=== PATIENT | male | born 1980 | race Hispanic/Latino ===

== ENCOUNTER 2017-09-04 11:51 | Inpatient (IN) | payer MEDICAID ==
[~2017-09-04] VITALS: Ht 144.8 cm; Wt 45.3 kg
[~2017-09-04 11:51] MED LIST: ACET-1952 PO; AMLO2.5T PO; CITA-107 PO; COLE625 PO; CYCL25CA3 PO; DOCU100C19 PO; DOCU240C25 PO; ESOM40CA PO; FLUC200T8 PO; FLUT16H EN; INSU100I15 SQ; LINA5TAB PO; LORA10TA7 PO; METO25TA3 PO; MYCO500T PO; OLOP2.5D OU; ONDA4TAB10 PO; OXYGEN NASAL; PRED2.5T PO; PROCTOCM PR; VALS80TA2 PO
[2017-09-04 12:58] LABS: BASOPHILS % (AUTO) 0.3 % (0.0-5.0); EOSINOPHILS % (AUTO) 0.3 % (0.0-8.0); HEMATOCRIT 41.7 % (42-54); LYMPHOCYTES % (AUTO) 8.9 % (21.0-51.0); MEAN CORPUSCULAR HEMOGLOBIN 29.4 pg (27.0-33.0); MEAN CORPUSCULAR HGB CONC 32.5 g/dL (32.0-36.0); MEAN CORPUSCULAR VOLUME 90.6 fL (79-99); MONOCYTES % (AUTO) 7.7 % (3.0-13.0); NEUTROPHILS % (AUTO) 82.8 % (40.0-77.0); NUCLEATED RED BLOOD CELLS 0.5 % (0.0-0.19); PLATELET COUNT (AUTO) 349 K/uL (130-400); RED BLOOD CELL COUNT(AUTO) 4.61 MIL/uL (4.50-6.20); WHITE BLOOD COUNT (AUTO) 15.1 K/uL (4.8-10.8)
[2017-09-04 13:17] LABS: CREATININE 3.1 mg/dL (0.5-1.5); POTASSIUM 4.2 mmol/L (3.5-5.1)
[2017-09-04 13:24] LABS: BILIRUBIN,TOTAL 0.2 mg/dL (0.2-1.0)
[2017-09-04 13:25] LABS: ALBUMIN 3.2 g/dL (3.5-5.0); TOTAL PROTEIN, SERUM 7.7 g/dL (6.0-8.3)
[2017-09-04] MEDS ORDERED: LEVOFLOXACIN 500 MG/D5W 100 ML 100 ML ONE (13:44)
[2017-09-04 15:16] VITALS: BP 126/91
[2017-09-04] MEDS ORDERED: FISH1CAP50 PO (17:17)
[2017-09-04] MEDS ORDERED: MULT-413 PO (17:17)
[2017-09-04 17:40] VITALS: BP 129/83
[2017-09-04] MEDS ORDERED: SODIUM CHLORIDE 0.9% 10 ML VIAL IVP SCH (18:15)
[2017-09-04] MEDS ORDERED: DiphenhydrAMINE HCL 50 MG/ML VIAL IVP PRN (18:15)
[2017-09-04] MEDS ORDERED: GUAIFENESIN-DM 200/20 MG 10 ML PO PRN (18:15)
[2017-09-04] MEDS ORDERED: ONDANSETRON HCL 4 MG/2 ML VIAL IVP PRN (18:15)
[2017-09-04] MEDS ORDERED: NITROGLYCERIN 0.4 MG SL TAB SL PRN (18:15)
[2017-09-04] MEDS ORDERED: DIPHENHYDRAMINE HCL 25 MG CAPSULE PO PRN (18:15)
[2017-09-04] MEDS ORDERED: ZOLPIDEM TARTRATE 5 MG TAB PO PRN (18:15)
[2017-09-04] MEDS ORDERED: LACTULOSE 20 GM/30 ML UDCUP PO PRN (18:15)
[2017-09-04] MEDS ORDERED: GUAIFENESIN SUGAR-FREE 100 MG/5 ML UDCUP PO PRN (18:15)
[2017-09-04] MEDS ORDERED: MAG HYDROX/AL HYDROX/SIMETH ES 30 ML SUSP UDCUP PO PRN (18:15)
[2017-09-04] MEDS ORDERED: CLONIDINE HCL 0.1 MG TABLET PO PRN (18:15)
[2017-09-04] MEDS ORDERED: ACETAMINOPHEN 325 MG TAB PO PRN ×2 (18:15)
[2017-09-04 19:03] VITALS: BP 122/81
[2017-09-04 19:53] LABS: APPEARANCE,URINE Clear (CLEAR); BILIRUBIN,URINE Negative (NEGATIVE); COLOR,URINE Yellow (YELLOW); GLUCOSE, URINE (UA) Negative (NEGATIVE); KETONES,URINE Negative (NEGATIVE); LEUKOCYTE ESTERASE ,URINE Negative (NEGATIVE); NITRATE,URINE Negative (NEGATIVE); OCCULT BLOOD,URINE Trace (NEGATIVE); PROTEIN,URINE 300 (NEGATIVE); UROBILINOGEN,URINE 0.2 mg/dL (0.2-1.0)
[2017-09-04 20:00] LABS: BACTERIA,URINE None Seen /HPF (None Seen); RBC,URINE 0-1 /HPF (0-1); SQUAMOUS EPITHELIAL CELL,UR 0-2 /HPF (0-2); WBC,URINE 0-1 /HPF (0-1)
[2017-09-04] MEDS: FAMOTIDINE 20MG TAB 20 MG TAB PO SCH (21:05)
[2017-09-04] MEDS: FUROSEMIDE 10 MG/ML 4ML VIAL IVP SCH (21:05)
[2017-09-04 23:35] VITALS: BP 125/82
[2017-09-05 03:49] VITALS: BP 125/85
[2017-09-05 03:57] LABS: BASOPHILS % (AUTO) 0.8 % (0.0-5.0); EOSINOPHILS % (AUTO) 0.7 % (0.0-8.0); HEMATOCRIT 37.2 % (42-54); LYMPHOCYTES % (AUTO) 11.1 % (21.0-51.0); MEAN CORPUSCULAR HEMOGLOBIN 28.6 pg (27.0-33.0); MEAN CORPUSCULAR HGB CONC 32.1 g/dL (32.0-36.0); MEAN CORPUSCULAR VOLUME 89.1 fL (79-99); MONOCYTES % (AUTO) 9.1 % (3.0-13.0); NEUTROPHILS % (AUTO) 78.3 % (40.0-77.0); NUCLEATED RED BLOOD CELLS 0.3 % (0.0-0.19); PLATELET COUNT (AUTO) 285 K/uL (130-400); RED BLOOD CELL COUNT(AUTO) 4.17 MIL/uL (4.50-6.20); RED CELL DISTRIBUTION WIDTH 16.7 % (11.0-15.5); WHITE BLOOD COUNT (AUTO) 12.5 K/uL (4.8-10.8)
[2017-09-05 04:13] LABS: CREATININE 3.1 mg/dL (0.5-1.5); POTASSIUM 3.9 mmol/L (3.5-5.1)
[2017-09-05 07:27] VITALS: BP 127/84
[2017-09-05] MEDS: PANTOPRAZOLE SODIUM 40 MG TABLET.DR PO SCH (08:08)
[2017-09-05] MEDS: FAMOTIDINE 20MG TAB 20 MG TAB PO SCH ×2 (08:08→20:38)
[2017-09-05] MEDS: FUROSEMIDE 10 MG/ML 4ML VIAL IVP SCH ×2 (08:08→20:38)
[2017-09-05 11:16] VITALS: BP 129/82
[2017-09-05] MEDS ORDERED: LORATADINE 10 MG TABLET PO PRN (12:30)
[2017-09-05] MEDS ORDERED: ONDANSETRON ODT 4 MG TAB PO PRN (12:30)
[2017-09-05] MEDS: ALBUTEROL SULFATE 0.083% 2.5 MG/3 ML INH IH SCH ×3 (13:48→21:33)
[2017-09-05] MEDS: COLESEVELAM HCL 625 MG TAB PO SCH ×2 (14:00→20:39)
[2017-09-05 16:21] VITALS: BP_SYST 109; BP_SYST 130; BP_DIAS 62; BP_DIAS 84
[2017-09-05] MEDS: INSULIN LISPRO 100 UNIT/ML 3ML SQ PRN ×2 (17:23→20:51)
[2017-09-05 19:02] VITALS: BP 131/87
[2017-09-05] MEDS: SODIUM BICARBONATE 650 MG TAB PO SCH (20:39)
[2017-09-05] MEDS: FLUCONAZOLE 100 MG TAB PO SCH (20:39)
[2017-09-05] MEDS: METOPROLOL TARTRATE 25 MG TAB PO SCH (20:40)
[2017-09-05] MEDS: LOSARTAN 50 MG TABLET PO SCH (20:40)
[2017-09-05 23:07] VITALS: BP 126/84
[2017-09-06] MEDS: ALBUTEROL SULFATE 0.083% 2.5 MG/3 ML INH IH SCH ×6 (02:02→22:03)
[2017-09-06 03:34] VITALS: BP 129/82
[2017-09-06 04:39] LABS: BASOPHILS % (AUTO) 0.6 % (0.0-5.0); EOSINOPHILS % (AUTO) 0.6 % (0.0-8.0); HEMATOCRIT 36.5 % (42-54); LYMPHOCYTES % (AUTO) 14.6 % (21.0-51.0); MEAN CORPUSCULAR HEMOGLOBIN 33.4 pg (27.0-33.0); MEAN CORPUSCULAR HGB CONC 37.5 g/dL (32.0-36.0); MEAN CORPUSCULAR VOLUME 88.9 fL (79-99); MONOCYTES % (AUTO) 8.3 % (3.0-13.0); NEUTROPHILS % (AUTO) 75.9 % (40.0-77.0); NUCLEATED RED BLOOD CELLS 0.2 % (0.0-0.19); PLATELET COUNT (AUTO) 324 K/uL (130-400); RED CELL DISTRIBUTION WIDTH 16.9 % (11.0-15.5); WHITE BLOOD COUNT (AUTO) 13.2 K/uL (4.8-10.8)
[2017-09-06 04:57] LABS: ALBUMIN 2.5 g/dL (3.5-5.0); BILIRUBIN,TOTAL 0.7 mg/dL (0.2-1.0); POTASSIUM 4.3 mmol/L (3.5-5.1)
[2017-09-06 05:51] LABS: TOTAL PROTEIN, SERUM 7.1 g/dL (6.0-8.3); URIC ACID 8.6 mg/dL (2.6-7.2)
[2017-09-06] MEDS: PANTOPRAZOLE SODIUM 40 MG TABLET.DR PO SCH ×2 (06:59→08:13)
[2017-09-06 07:00] VITALS: BP 134/85
[2017-09-06] MEDS: FUROSEMIDE 10 MG/ML 4ML VIAL IVP SCH (08:11)
[2017-09-06] MEDS: METOPROLOL TARTRATE 25 MG TAB PO SCH ×2 (08:12→21:07)
[2017-09-06] MEDS: DOCUSATE SODIUM 100 MG CAP PO SCH (08:13)
[2017-09-06] MEDS: FISH OIL 1000 MG/CAP PO SCH (08:13)
[2017-09-06] MEDS: CITALOPRAM 20 MG TABLET PO SCH (08:13)
[2017-09-06] MEDS: FAMOTIDINE 20MG TAB 20 MG TAB PO SCH ×2 (08:13→21:07)
[2017-09-06] MEDS: COLESEVELAM HCL 625 MG TAB PO SCH ×3 (08:13→21:07)
[2017-09-06] MEDS: FE FUMARATE/FA/MV, MIN COMB#15 1 TAB PO SCH (08:13)
[2017-09-06] MEDS: MYCOPHENOLATE MOFETIL 250 MG CAPSULE PO SCH (08:13)
[2017-09-06] MEDS: SODIUM BICARBONATE 650 MG TAB PO SCH ×3 (08:13→21:07)
[2017-09-06] MEDS: LINAGLIPTIN 5 MG TABLET PO SCH (08:14)
[2017-09-06] MEDS: FLUTICASONE PROPIONATE 50MCG/SPRAY 16 GM BOTTLE EN SCH (08:14)
[2017-09-06] MEDS: PREDNISONE 5 MG TABLET PO SCH (09:00)
[2017-09-06 11:00] VITALS: BP 129/89
[2017-09-06 16:00] VITALS: BP 146/96
[2017-09-06] MEDS: INSULIN LISPRO 100 UNIT/ML 3ML SQ PRN (16:33)
[2017-09-06 19:21] VITALS: BP 125/92
[2017-09-06] MEDS ORDERED: MEROPENEM 500MG+NS 50ML 50 ML IV SCH (21:00)
[2017-09-06] MEDS: LOSARTAN 50 MG TABLET PO SCH (21:05)
[2017-09-06] MEDS: FLUCONAZOLE 100 MG TAB PO SCH (21:06)
[2017-09-06] MEDS: MEROPENEM 500 MG VIAL IVP SCH (21:07)
[2017-09-06 23:23] VITALS: BP 129/85
[2017-09-07] MEDS: ALBUTEROL SULFATE 0.083% 2.5 MG/3 ML INH IH SCH ×6 (01:16→21:35)
[2017-09-07 03:06] VITALS: BP 138/87
[2017-09-07 04:54] LABS: CREATININE 3.7 mg/dL (0.5-1.5); POTASSIUM 3.4 mmol/L (3.5-5.1)
[2017-09-07 04:56] LABS: HEMATOCRIT 37.7 % (42-54); MEAN CORPUSCULAR HEMOGLOBIN 30.1 pg (27.0-33.0); MEAN CORPUSCULAR HGB CONC 33.5 g/dL (32.0-36.0); MEAN CORPUSCULAR VOLUME 89.9 fL (79-99); NUCLEATED RED BLOOD CELLS 0.2 % (0.0-0.19); PLATELET COUNT (AUTO) 197 K/uL (130-400); RED BLOOD CELL COUNT(AUTO) 4.19 MIL/uL (4.50-6.20); WHITE BLOOD COUNT (AUTO) 12.4 K/uL (4.8-10.8)
[2017-09-07 07:11] VITALS: BP 136/92
[2017-09-07] MEDS: PREDNISONE 5 MG TABLET PO SCH (08:42)
[2017-09-07] MEDS: FOLIC ACID/VITAMIN B COMP W-C 1 MG CAPSULE PO SCH (08:42)
[2017-09-07] MEDS: FISH OIL 1000 MG/CAP PO SCH (08:42)
[2017-09-07] MEDS: DOCUSATE SODIUM 100 MG CAP PO SCH (08:42)
[2017-09-07] MEDS: COLESEVELAM HCL 625 MG TAB PO SCH ×3 (08:42→22:02)
[2017-09-07] MEDS: LINAGLIPTIN 5 MG TABLET PO SCH (08:42)
[2017-09-07] MEDS: MEROPENEM 500 MG VIAL IVP SCH ×2 (08:42→22:02)
[2017-09-07] MEDS: FAMOTIDINE 20MG TAB 20 MG TAB PO SCH ×2 (08:42→22:02)
[2017-09-07] MEDS: SODIUM BICARBONATE 650 MG TAB PO SCH ×3 (08:43→22:02)
[2017-09-07] MEDS: PANTOPRAZOLE SODIUM 40 MG TABLET.DR PO SCH ×2 (08:43)
[2017-09-07] MEDS: CITALOPRAM 20 MG TABLET PO SCH (08:43)
[2017-09-07] MEDS: FE FUMARATE/FA/MV, MIN COMB#15 1 TAB PO SCH (08:43)
[2017-09-07] MEDS: METOPROLOL TARTRATE 25 MG TAB PO SCH ×2 (08:43→22:02)
[2017-09-07] MEDS: MYCOPHENOLATE MOFETIL 250 MG CAPSULE PO SCH (08:51)
[2017-09-07] MEDS: CYCLOSPORINE, MODIFIED 25 MG CAPSULE PO SCH ×2 (08:52→09:00)
[2017-09-07] MEDS: FLUTICASONE PROPIONATE 50MCG/SPRAY 16 GM BOTTLE EN SCH (09:00)
[2017-09-07 11:00] VITALS: BP 144/91
[2017-09-07 12:46] LABS: COLLECTION PERIOD,URINE 24 HR; TOTAL VOLUME 24HRS,URINE 600 mL
[2017-09-07 12:51] LABS: CREATININE,SERUM FOR CRCL 3.7 mg/dL (0.6-1.3)
[2017-09-07 13:01] LABS: TPROTEIN TIMED,URINE 290 mg/dL; TPROTEIN U,24HR CALC 1740 mg/24HR (0-165)
[2017-09-07 16:00] VITALS: BP 143/96
[2017-09-07] MEDS: INSULIN LISPRO 100 UNIT/ML 3ML SQ PRN (16:19)
[2017-09-07 19:36] VITALS: BP 148/92
[2017-09-07] MEDS: FLUCONAZOLE 100 MG TAB PO SCH (22:01)
[2017-09-07] MEDS: LOSARTAN 50 MG TABLET PO SCH (22:02)
[2017-09-07 23:30] VITALS: BP 145/93
[2017-09-08] MEDS: ALBUTEROL SULFATE 0.083% 2.5 MG/3 ML INH IH SCH ×6 (01:50→22:27)
[2017-09-08 04:02] LABS: HEMATOCRIT 36.6 % (42-54); MEAN CORPUSCULAR HEMOGLOBIN 29.6 pg (27.0-33.0); MEAN CORPUSCULAR VOLUME 89.6 fL (79-99); NUCLEATED RED BLOOD CELLS 0.2 % (0.0-0.19); PLATELET COUNT (AUTO) 284 K/uL (130-400); RED BLOOD CELL COUNT(AUTO) 4.08 MIL/uL (4.50-6.20); RED CELL DISTRIBUTION WIDTH 17.1 % (11.0-15.5); WHITE BLOOD COUNT (AUTO) 10.4 K/uL (4.8-10.8)
[2017-09-08 04:10] VITALS: BP 143/93
[2017-09-08 04:19] LABS: ALBUMIN 2.8 g/dL (3.5-5.0); BILIRUBIN,TOTAL 0.2 mg/dL (0.2-1.0); CREATININE 3.3 mg/dL (0.5-1.5); POTASSIUM 4.1 mmol/L (3.5-5.1); TOTAL PROTEIN, SERUM 6.7 g/dL (6.0-8.3)
[2017-09-08 04:20] LABS: BAND NEUTROPHILS % (MANUAL) 1 % (0-2); BASOPHILS % (MANUAL) 1 % (0-2); EOSINOPHILS % (MANUAL) 2 % (1-6); LYMPHOCYTES % (MANUAL) 13 % (22-44); MONOCYTES % (MANUAL) 5 % (2-9); SEGMENTED NEUTROPHILS % 78 % (40-70)
[2017-09-08 04:21] LABS: MAN.DIFF COMMENT-IMPRESSION MANUAL DIFFERENTIAL
[2017-09-08 07:00] VITALS: BP 138/96
[2017-09-08] MEDS: LINAGLIPTIN 5 MG TABLET PO SCH (08:18)
[2017-09-08] MEDS: COLESEVELAM HCL 625 MG TAB PO SCH ×3 (08:18→22:39)
[2017-09-08] MEDS: SODIUM BICARBONATE 650 MG TAB PO SCH ×3 (08:18→22:54)
[2017-09-08] MEDS: CITALOPRAM 20 MG TABLET PO SCH (08:18)
[2017-09-08] MEDS: FAMOTIDINE 20MG TAB 20 MG TAB PO SCH ×2 (08:19→22:40)
[2017-09-08] MEDS: FE FUMARATE/FA/MV, MIN COMB#15 1 TAB PO SCH (08:19)
[2017-09-08] MEDS: PREDNISONE 5 MG TABLET PO SCH (08:19)
[2017-09-08] MEDS: FISH OIL 1000 MG/CAP PO SCH (08:19)
[2017-09-08] MEDS: METOPROLOL TARTRATE 25 MG TAB PO SCH ×2 (08:19→22:39)
[2017-09-08] MEDS: DOCUSATE SODIUM 100 MG CAP PO SCH (08:19)
[2017-09-08] MEDS: PANTOPRAZOLE SODIUM 40 MG TABLET.DR PO SCH ×2 (08:19)
[2017-09-08] MEDS: FOLIC ACID/VITAMIN B COMP W-C 1 MG CAPSULE PO SCH (08:19)
[2017-09-08] MEDS: MYCOPHENOLATE MOFETIL 250 MG CAPSULE PO SCH (08:25)
[2017-09-08] MEDS: FLUTICASONE PROPIONATE 50MCG/SPRAY 16 GM BOTTLE EN SCH (08:28)
[2017-09-08] MEDS: MEROPENEM 500 MG VIAL IVP SCH (09:00)
[2017-09-08 11:00] VITALS: BP 132/99
[2017-09-08 16:00] VITALS: BP 132/93
[2017-09-08 19:32] VITALS: BP 135/92
[2017-09-08] MEDS ORDERED: MEROPENEM 500 MG VIAL IVP SCH (21:00)
[2017-09-08] MEDS: FLUCONAZOLE 100 MG TAB PO SCH (22:40)
[2017-09-08] MEDS: LOSARTAN 50 MG TABLET PO SCH (22:40)
[2017-09-09] VITALS (7 sets, daily range): BP systolic 124–152; BP diastolic 63–101
[2017-09-09] MEDS: ALBUTEROL SULFATE 0.083% 2.5 MG/3 ML INH IH SCH ×6 (02:09→22:16)
[2017-09-09 05:07] LABS: MEAN CORPUSCULAR HEMOGLOBIN 32.1 pg (27.0-33.0); MEAN CORPUSCULAR HGB CONC 35.9 g/dL (32.0-36.0); MEAN CORPUSCULAR VOLUME 89.5 fL (79-99); NUCLEATED RED BLOOD CELLS 0.1 % (0.0-0.19); PLATELET COUNT (AUTO) 300 K/uL (130-400); RED BLOOD CELL COUNT(AUTO) 4.02 MIL/uL (4.50-6.20); WHITE BLOOD COUNT (AUTO) 10.6 K/uL (4.8-10.8)
[2017-09-09 05:15] LABS: LYMPHOCYTES % (MANUAL) 15 % (22-44); MAN.DIFF COMMENT-IMPRESSION MANUAL DIFFERENTIAL; MONOCYTES % (MANUAL) 3 % (2-9); PLATELET MORPHOLOGY COMMENT ADEQUATE; SEGMENTED NEUTROPHILS % 82 % (40-70)
[2017-09-09 05:37] LABS: POTASSIUM 4.1 mmol/L (3.5-5.1)
[2017-09-09 06:00] LABS: CREATININE 2.6 mg/dL (0.5-1.5)
[2017-09-09] MEDS: PANTOPRAZOLE SODIUM 40 MG TABLET.DR PO SCH ×2 (07:33→08:07)
[2017-09-09] MEDS: FISH OIL 1000 MG/CAP PO SCH (08:07)
[2017-09-09] MEDS: LINAGLIPTIN 5 MG TABLET PO SCH (08:07)
[2017-09-09] MEDS: SODIUM BICARBONATE 650 MG TAB PO SCH ×3 (08:07→21:01)
[2017-09-09] MEDS: FE FUMARATE/FA/MV, MIN COMB#15 1 TAB PO SCH (08:07)
[2017-09-09] MEDS: METOPROLOL TARTRATE 25 MG TAB PO SCH ×2 (08:07→20:59)
[2017-09-09] MEDS: FOLIC ACID/VITAMIN B COMP W-C 1 MG CAPSULE PO SCH (08:07)
[2017-09-09] MEDS: DOCUSATE SODIUM 100 MG CAP PO SCH (08:07)
[2017-09-09] MEDS: PREDNISONE 5 MG TABLET PO SCH (08:07)
[2017-09-09] MEDS: CYCLOSPORINE, MODIFIED 25 MG CAPSULE PO SCH (08:08)
[2017-09-09] MEDS: MYCOPHENOLATE MOFETIL 250 MG CAPSULE PO SCH (08:08)
[2017-09-09] MEDS: CITALOPRAM 20 MG TABLET PO SCH (08:08)
[2017-09-09] MEDS: FAMOTIDINE 20MG TAB 20 MG TAB PO SCH ×2 (08:08→21:00)
[2017-09-09] MEDS: COLESEVELAM HCL 625 MG TAB PO SCH ×3 (08:08→20:58)
[2017-09-09] MEDS: FLUTICASONE PROPIONATE 50MCG/SPRAY 16 GM BOTTLE EN SCH (08:08)
[2017-09-09] MEDS: INSULIN LISPRO 100 UNIT/ML 3ML SQ PRN (17:02)
[2017-09-09] MEDS: MEROPENEM 1 GM VIAL IVP SCH (20:58)
[2017-09-09] MEDS: LOSARTAN 50 MG TABLET PO SCH (20:59)
[2017-09-09] MEDS: FLUCONAZOLE 100 MG TAB PO SCH (20:59)
[2017-09-10] MEDS: ALBUTEROL SULFATE 0.083% 2.5 MG/3 ML INH IH SCH ×4 (02:15→14:13)
[2017-09-10 03:40] VITALS: BP 143/94
[2017-09-10 04:46] LABS: HEMATOCRIT 33.8 % (42-54); MEAN CORPUSCULAR HEMOGLOBIN 31.5 pg (27.0-33.0); MEAN CORPUSCULAR HGB CONC 35.3 g/dL (32.0-36.0); MEAN CORPUSCULAR VOLUME 89.1 fL (79-99); NUCLEATED RED BLOOD CELLS 0.1 % (0.0-0.19); PLATELET COUNT (AUTO) 266 K/uL (130-400); RED CELL DISTRIBUTION WIDTH 16.9 % (11.0-15.5); WHITE BLOOD COUNT (AUTO) 10.4 K/uL (4.8-10.8)
[2017-09-10 04:49] LABS: CREATININE 2.7 mg/dL (0.5-1.5); POTASSIUM 3.6 mmol/L (3.5-5.1)
[2017-09-10 07:30] VITALS: BP 142/97
[2017-09-10] MEDS: COLESEVELAM HCL 625 MG TAB PO SCH ×2 (08:08→15:50)
[2017-09-10] MEDS: MYCOPHENOLATE MOFETIL 250 MG CAPSULE PO SCH (08:08)
[2017-09-10] MEDS: METOPROLOL TARTRATE 25 MG TAB PO SCH (08:08)
[2017-09-10] MEDS: FLUTICASONE PROPIONATE 50MCG/SPRAY 16 GM BOTTLE EN SCH (08:09)
[2017-09-10] MEDS: FOLIC ACID/VITAMIN B COMP W-C 1 MG CAPSULE PO SCH (08:09)
[2017-09-10] MEDS: SODIUM BICARBONATE 650 MG TAB PO SCH ×2 (08:09→15:50)
[2017-09-10] MEDS: FISH OIL 1000 MG/CAP PO SCH (08:09)
[2017-09-10] MEDS: PREDNISONE 5 MG TABLET PO SCH (08:09)
[2017-09-10] MEDS: FE FUMARATE/FA/MV, MIN COMB#15 1 TAB PO SCH (08:09)
[2017-09-10] MEDS: LINAGLIPTIN 5 MG TABLET PO SCH (08:09)
[2017-09-10] MEDS: CITALOPRAM 20 MG TABLET PO SCH (08:09)
[2017-09-10] MEDS: FAMOTIDINE 20MG TAB 20 MG TAB PO SCH (08:09)
[2017-09-10] MEDS: DOCUSATE SODIUM 100 MG CAP PO SCH (08:09)
[2017-09-10] MEDS: PANTOPRAZOLE SODIUM 40 MG TABLET.DR PO SCH (08:09)
[2017-09-10 11:50] VITALS: BP 144/96
[2017-09-10] MEDS: INSULIN LISPRO 100 UNIT/ML 3ML SQ PRN (12:24)
[2017-09-10] MEDS: MEROPENEM 1 GM VIAL IVP SCH (13:33)
[2017-09-11] MEDS ORDERED: FAMOTIDINE 20MG TAB 20 MG TAB PO SCH (09:00)
== END 2017-09-10 16:27 | disposition home or self-care (01) | DRG 720 ==
LOC: EDH 11:51 → EDHIP 11:52 → 2DH 17:40
PROVIDERS: ADMIT Family Medicine; ATTEND Family Medicine
DX: A41.9 Sepsis, unspecified organism (principal); J96.22 Acute and chronic respiratory failure with hypercapnia; Q21.3 Tetralogy of Fallot; I12.0 Hypertensive chronic kidney disease with stage 5 chronic kidney disease or end stage renal disease; N17.9 Acute kidney failure, unspecified; E11.22 Type 2 diabetes mellitus with diabetic chronic kidney disease; I42.9 Cardiomyopathy, unspecified; E66.2 Morbid (severe) obesity with alveolar hypoventilation; E87.2 Acidosis; N18.6 End stage renal disease; D64.9 Anemia, unspecified; E78.5 Hyperlipidemia, unspecified; F79 Unspecified intellectual disabilities; J20.9 Acute bronchitis, unspecified; J44.0 Chronic obstructive pulmonary disease with (acute) lower respiratory infection; J44.1 Chronic obstructive pulmonary disease with (acute) exacerbation; N39.0 Urinary tract infection, site not specified; Z16.12 Extended spectrum beta lactamase (ESBL) resistance; Z16.24 Resistance to multiple antibiotics; B96.20 Unspecified Escherichia coli [E. coli] as the cause of diseases classified elsewhere; Z78.9 Other specified health status; Z94.0 Kidney transplant status; Z79.899 Other long term (current) drug therapy; Z88.8 Allergy status to other drugs, medicaments and biological substances; Z68.21 Body mass index [BMI] 21.0-21.9, adult
CPT/HCPCS: 36415; 71045; 76770; 80048; 80053; 80158; 81001; 82009; 82550; 82575; 82948; 83605; 83880; 84156; 84484; 84550; 85025; 85027; 87040; 87088; 87186; 87804; 93005; 93306; 94640; 94664; A4218; J1940; J1956; J2185; J7512; J7515; J7517

== ENCOUNTER 2017-09-23 01:15 | Inpatient (IN) | payer MEDICAID ==
[~2017-09-23] VITALS: Ht 144.8 cm; Wt 50.5 kg
[~2017-09-23 01:15] MED LIST changes: -DOCU240C25 PO; +FISH1CAP50 PO; +MULT-413 PO; -OLOP2.5D OU
[2017-09-23 01:48] LABS: BASOPHILS % (AUTO) 0.6 % (0.0-5.0); EOSINOPHILS % (AUTO) 0.7 % (0.0-8.0); HEMATOCRIT 36.4 % (42-54); LYMPHOCYTES % (AUTO) 17.4 % (21.0-51.0); MEAN CORPUSCULAR HEMOGLOBIN 30.8 pg (27.0-33.0); MEAN CORPUSCULAR HGB CONC 34.3 g/dL (32.0-36.0); MEAN CORPUSCULAR VOLUME 89.9 fL (79-99); MONOCYTES % (AUTO) 11.9 % (3.0-13.0); NEUTROPHILS % (AUTO) 69.4 % (40.0-77.0); NUCLEATED RED BLOOD CELLS 0.1 % (0.0-0.19); PLATELET COUNT (AUTO) 320 K/uL (130-400); RED BLOOD CELL COUNT(AUTO) 4.05 MIL/uL (4.50-6.20); RED CELL DISTRIBUTION WIDTH 16.3 % (11.0-15.5); WHITE BLOOD COUNT (AUTO) 8.9 K/uL (4.8-10.8)
[2017-09-23 01:55] LABS: POTASSIUM 4.6 mmol/L (3.5-5.1)
[2017-09-23 01:58] LABS: INR 0.85 (0.85-1.15); PARTIAL THROMBOPLASTIN TIME 22.4 SEC (26.3-35.5); PROTHROMBIN TIME 8.8 SEC (9.6-11.6)
[2017-09-23 01:59] LABS: ALBUMIN 2.9 g/dL (3.5-5.0); BILIRUBIN,TOTAL 0.4 mg/dL (0.2-1.0)
[2017-09-23 02:24] LABS: TOTAL PROTEIN, SERUM 6.4 g/dL (6.0-8.3)
[2017-09-23 03:31] LABS: APPEARANCE,URINE Clear (CLEAR); BILIRUBIN,URINE Negative (NEGATIVE); COLOR,URINE Yellow (YELLOW); GLUCOSE, URINE (UA) Negative (NEGATIVE); KETONES,URINE Negative (NEGATIVE); LEUKOCYTE ESTERASE ,URINE Negative (NEGATIVE); NITRATE,URINE Negative (NEGATIVE); OCCULT BLOOD,URINE Trace (NEGATIVE); PROTEIN,URINE 300 (NEGATIVE); UROBILINOGEN,URINE 0.2 mg/dL (0.2-1.0)
[2017-09-23] MEDS ORDERED: HYDRALAZINE HCL 20 MG/ML VIAL ONE (03:42)
[2017-09-23 03:47] LABS: BACTERIA,URINE Rare /HPF (None Seen); RBC,URINE 0-1 /HPF (0-1); WBC,URINE 0-1 /HPF (0-1)
[2017-09-23 04:15] VITALS: BP 169/170
[2017-09-23] MEDS ORDERED: BUDE10.2 IH (04:36)
[2017-09-23] MEDS: SODIUM CHLORIDE 0.9% 1000ML 1,000 ML IV SCH ×2 (05:26→16:46)
[2017-09-23] MEDS: PANTOPRAZOLE SODIUM 40 MG TABLET.DR PO SCH (05:27)
[2017-09-23] MEDS ORDERED: FURO20TA6 PO (05:53)
[2017-09-23] MEDS ORDERED: HYDROCORTISONE/PRAMOXINE 10 GM FOAM RC PRN (06:00)
[2017-09-23] MEDS ORDERED: INSULIN LISPRO SQ PRN (06:00)
[2017-09-23] MEDS ORDERED: ACETAMINOPHEN 325 MG TAB PO PRN (06:00)
[2017-09-23] MEDS ORDERED: ONDANSETRON ODT 4 MG TAB PO PRN (06:00)
[2017-09-23 08:00] VITALS: BP 160/99
[2017-09-23] MEDS ORDERED: FUROSEMIDE 20 MG TABLET PO SCH (09:00)
[2017-09-23] MEDS: METOPROLOL SUCCINATE 100 MG PO SCH (09:00)
[2017-09-23] MEDS: MYCOPHENOLATE MOFETIL 250 MG CAPSULE PO SCH (09:20)
[2017-09-23] MEDS: CYCLOSPORINE, MODIFIED 25 MG CAPSULE PO SCH (09:21)
[2017-09-23] MEDS: FISH OIL 1000 MG/CAP PO SCH (09:21)
[2017-09-23] MEDS: LINAGLIPTIN 5 MG TABLET PO SCH (09:21)
[2017-09-23] MEDS: DOCUSATE SODIUM 100 MG CAP PO SCH (09:21)
[2017-09-23] MEDS: COLESEVELAM HCL 625 MG TAB PO SCH ×3 (09:23→21:48)
[2017-09-23] MEDS: PREDNISONE 5 MG TABLET PO SCH (09:23)
[2017-09-23] MEDS: MULTIVITAMIN WITH MINERALS TABLET PO SCH (09:23)
[2017-09-23] MEDS: CITALOPRAM 20 MG TABLET PO SCH (09:23)
[2017-09-23] MEDS: FLUTICASONE PROPIONATE 50MCG/SPRAY 16 GM BOTTLE EN SCH (09:24)
[2017-09-23] MEDS: LORATADINE 10 MG TABLET PO SCH (09:24)
[2017-09-23 11:45] VITALS: BP 151/96
[2017-09-23] MEDS ORDERED: DEXTROSE 50%-WATER 50 ML DISP.SYRIN IV PRN (11:45)
[2017-09-23] MEDS ORDERED: GLUCAGON 1MG KIT 1 MG ML IM PRN (11:45)
[2017-09-23] MEDS: FUROSEMIDE 10 MG/ML 4ML VIAL IV SCH ×2 (12:15→23:39)
[2017-09-23 16:00] VITALS: BP 145/95
[2017-09-23] MEDS: INSULIN HUMULIN R 100 UNIT/ML 3ML SQ SCH ×2 (16:30→21:00)
[2017-09-23 19:00] VITALS: BP 150/99
[2017-09-23] MEDS: FLUCONAZOLE 100 MG TAB PO SCH (21:48)
[2017-09-24] VITALS: BP 147/101
[2017-09-24] MEDS: CLONIDINE HCL 0.2 MG TABLET PO PRN (01:59)
[2017-09-24 03:53] VITALS: BP 155/104
[2017-09-24] MEDS: SODIUM CHLORIDE 0.9% 1000ML 1,000 ML IV SCH ×2 (04:37→16:18)
[2017-09-24 05:10] LABS: BASOPHILS % (AUTO) 1.1 % (0.0-5.0); EOSINOPHILS % (AUTO) 1.7 % (0.0-8.0); HEMATOCRIT 32.6 % (42-54); LYMPHOCYTES % (AUTO) 23.6 % (21.0-51.0); MEAN CORPUSCULAR HEMOGLOBIN 31.3 pg (27.0-33.0); MEAN CORPUSCULAR HGB CONC 35.4 g/dL (32.0-36.0); MEAN CORPUSCULAR VOLUME 88.3 fL (79-99); MONOCYTES % (AUTO) 13.8 % (3.0-13.0); NEUTROPHILS % (AUTO) 59.8 % (40.0-77.0); NUCLEATED RED BLOOD CELLS 0.1 % (0.0-0.19); PLATELET COUNT (AUTO) 313 K/uL (130-400); RED CELL DISTRIBUTION WIDTH 16.2 % (11.0-15.5); WHITE BLOOD COUNT (AUTO) 9.7 K/uL (4.8-10.8)
[2017-09-24 05:34] LABS: ALBUMIN 2.5 g/dL (3.5-5.0); BILIRUBIN,TOTAL 0.2 mg/dL (0.2-1.0); CREATININE 2.8 mg/dL (0.5-1.5); POTASSIUM 3.9 mmol/L (3.5-5.1)
[2017-09-24] MEDS: PANTOPRAZOLE SODIUM 40 MG TABLET.DR PO SCH (05:37)
[2017-09-24] MEDS: INSULIN HUMULIN R 100 UNIT/ML 3ML SQ SCH ×4 (06:48→21:00)
[2017-09-24 08:00] VITALS: BP 137/90
[2017-09-24] MEDS: METOPROLOL SUCCINATE 100 MG PO SCH (09:00)
[2017-09-24] MEDS: MULTIVITAMIN WITH MINERALS TABLET PO SCH (10:04)
[2017-09-24] MEDS: FISH OIL 1000 MG/CAP PO SCH (10:04)
[2017-09-24] MEDS: DOCUSATE SODIUM 100 MG CAP PO SCH (10:04)
[2017-09-24] MEDS: LORATADINE 10 MG TABLET PO SCH (10:04)
[2017-09-24] MEDS: CITALOPRAM 20 MG TABLET PO SCH (10:04)
[2017-09-24] MEDS: COLESEVELAM HCL 625 MG TAB PO SCH ×3 (10:04→21:53)
[2017-09-24] MEDS: PREDNISONE 5 MG TABLET PO SCH (10:04)
[2017-09-24] MEDS: LINAGLIPTIN 5 MG TABLET PO SCH (10:05)
[2017-09-24] MEDS: MYCOPHENOLATE MOFETIL 250 MG CAPSULE PO SCH (10:05)
[2017-09-24] MEDS: FLUTICASONE PROPIONATE 50MCG/SPRAY 16 GM BOTTLE EN SCH (10:12)
[2017-09-24 11:38] VITALS: BP 146/100
[2017-09-24] MEDS: FUROSEMIDE 10 MG/ML 4ML VIAL IV SCH (12:00)
[2017-09-24 16:00] VITALS: BP 145/92
[2017-09-24 20:00] VITALS: BP 137/95
[2017-09-24] MEDS: FLUCONAZOLE 100 MG TAB PO SCH (21:53)
[2017-09-25] VITALS (8 sets, daily range): BP systolic 124–157; BP diastolic 74–106
[2017-09-25] MEDS: FUROSEMIDE 10 MG/ML 4ML VIAL IV SCH ×2 (00:22→12:17)
[2017-09-25] MEDS: SODIUM CHLORIDE 0.9% 1000ML 1,000 ML IV SCH ×2 (03:56→15:50)
[2017-09-25 05:11] LABS: BASOPHILS % (AUTO) 0.8 % (0.0-5.0); EOSINOPHILS % (AUTO) 1.9 % (0.0-8.0); HEMATOCRIT 35.5 % (42-54); MEAN CORPUSCULAR HEMOGLOBIN 30.4 pg (27.0-33.0); MEAN CORPUSCULAR HGB CONC 34.1 g/dL (32.0-36.0); MONOCYTES % (AUTO) 11.3 % (3.0-13.0); NUCLEATED RED BLOOD CELLS 0.2 % (0.0-0.19); PLATELET COUNT (AUTO) 318 K/uL (130-400); RED BLOOD CELL COUNT(AUTO) 3.99 MIL/uL (4.50-6.20); RED CELL DISTRIBUTION WIDTH 16.3 % (11.0-15.5); WHITE BLOOD COUNT (AUTO) 10.4 K/uL (4.8-10.8)
[2017-09-25] MEDS: PANTOPRAZOLE SODIUM 40 MG TABLET.DR PO SCH (05:23)
[2017-09-25] MEDS: INSULIN HUMULIN R 100 UNIT/ML 3ML SQ SCH ×4 (05:32→20:51)
[2017-09-25 05:38] LABS: ALBUMIN 2.5 g/dL (3.5-5.0); BILIRUBIN,TOTAL 0.1 mg/dL (0.2-1.0); POTASSIUM 3.6 mmol/L (3.5-5.1); TOTAL PROTEIN, SERUM 6.3 g/dL (6.0-8.3)
[2017-09-25] MEDS: METOPROLOL SUCCINATE 100 MG PO SCH (09:00)
[2017-09-25] MEDS: LORATADINE 10 MG TABLET PO SCH (10:39)
[2017-09-25] MEDS: FISH OIL 1000 MG/CAP PO SCH (10:39)
[2017-09-25] MEDS: DOCUSATE SODIUM 100 MG CAP PO SCH (10:39)
[2017-09-25] MEDS: CITALOPRAM 20 MG TABLET PO SCH (10:39)
[2017-09-25] MEDS: PREDNISONE 5 MG TABLET PO SCH (10:39)
[2017-09-25] MEDS: MULTIVITAMIN WITH MINERALS TABLET PO SCH (10:39)
[2017-09-25] MEDS: LINAGLIPTIN 5 MG TABLET PO SCH (10:39)
[2017-09-25] MEDS: MYCOPHENOLATE MOFETIL 250 MG CAPSULE PO SCH (10:40)
[2017-09-25] MEDS: FLUTICASONE PROPIONATE 50MCG/SPRAY 16 GM BOTTLE EN SCH (10:41)
[2017-09-25] MEDS: CYCLOSPORINE, MODIFIED 25 MG CAPSULE PO SCH (10:47)
[2017-09-25] MEDS: COLESEVELAM HCL 625 MG TAB PO SCH ×3 (10:47→20:51)
[2017-09-25] MEDS: CLONIDINE HCL 0.2 MG TABLET PO PRN (12:16)
[2017-09-25] MEDS: FUROSEMIDE 40 MG TABLET PO SCH (14:00)
[2017-09-25] MEDS: FLUCONAZOLE 100 MG TAB PO SCH (20:51)
[2017-09-25] MEDS ORDERED: FUROSEMIDE 10 MG/ML 4ML VIAL IV SCH (21:00)
[2017-09-26] MEDS: SODIUM CHLORIDE 0.9% 1000ML 1,000 ML IV SCH (03:36)
[2017-09-26 03:55] VITALS: BP 149/97
[2017-09-26 04:57] LABS: HEMATOCRIT 36.5 % (42-54); MEAN CORPUSCULAR HEMOGLOBIN 29.5 pg (27.0-33.0); MEAN CORPUSCULAR HGB CONC 33.5 g/dL (32.0-36.0); MEAN CORPUSCULAR VOLUME 87.9 fL (79-99); PLATELET COUNT (AUTO) 291 K/uL (130-400); RED BLOOD CELL COUNT(AUTO) 4.15 MIL/uL (4.50-6.20); RED CELL DISTRIBUTION WIDTH 16.1 % (11.0-15.5)
[2017-09-26 05:16] LABS: CREATININE 3.1 mg/dL (0.5-1.5); POTASSIUM 3.7 mmol/L (3.5-5.1)
[2017-09-26] MEDS: INSULIN HUMULIN R 100 UNIT/ML 3ML SQ SCH ×4 (06:27→21:00)
[2017-09-26] MEDS: PANTOPRAZOLE SODIUM 40 MG TABLET.DR PO SCH (06:27)
[2017-09-26 08:00] VITALS: BP 145/91
[2017-09-26] MEDS: METOPROLOL SUCCINATE 100 MG PO SCH (09:00)
[2017-09-26] MEDS: COLESEVELAM HCL 625 MG TAB PO SCH ×3 (09:00→21:16)
[2017-09-26] MEDS: CITALOPRAM 20 MG TABLET PO SCH (09:20)
[2017-09-26] MEDS: FISH OIL 1000 MG/CAP PO SCH (09:20)
[2017-09-26] MEDS: LORATADINE 10 MG TABLET PO SCH (09:20)
[2017-09-26] MEDS: DOCUSATE SODIUM 100 MG CAP PO SCH (09:21)
[2017-09-26] MEDS: FUROSEMIDE 40 MG TABLET PO SCH ×2 (09:21→12:58)
[2017-09-26] MEDS: MULTIVITAMIN WITH MINERALS TABLET PO SCH (09:21)
[2017-09-26] MEDS: PREDNISONE 5 MG TABLET PO SCH (09:21)
[2017-09-26] MEDS: MYCOPHENOLATE MOFETIL 250 MG CAPSULE PO SCH (09:21)
[2017-09-26] MEDS: LINAGLIPTIN 5 MG TABLET PO SCH (09:21)
[2017-09-26] MEDS: FLUTICASONE PROPIONATE 50MCG/SPRAY 16 GM BOTTLE EN SCH (09:25)
[2017-09-26 12:00] VITALS: BP 146/99
[2017-09-26 15:55] VITALS: BP 132/96
[2017-09-26] MEDS ORDERED: LACTULOSE 20 GM/30 ML UDCUP PO PRN (18:00)
[2017-09-26 19:28] VITALS: BP 149/101
[2017-09-26] MEDS: FLUCONAZOLE 100 MG TAB PO SCH (21:16)
[2017-09-26 23:33] VITALS: BP 152/104
[2017-09-27 03:11] VITALS: BP 158/104
[2017-09-27] MEDS: PANTOPRAZOLE SODIUM 40 MG TABLET.DR PO SCH (06:42)
[2017-09-27] MEDS: INSULIN HUMULIN R 100 UNIT/ML 3ML SQ SCH ×4 (06:42→21:00)
[2017-09-27 07:06] LABS: HEMATOCRIT 36.5 % (42-54); MEAN CORPUSCULAR HEMOGLOBIN 29.6 pg (27.0-33.0); MEAN CORPUSCULAR HGB CONC 33.7 g/dL (32.0-36.0); MEAN CORPUSCULAR VOLUME 87.7 fL (79-99); NUCLEATED RED BLOOD CELLS 0.1 % (0.0-0.19); PLATELET COUNT (AUTO) 321 K/uL (130-400); RED BLOOD CELL COUNT(AUTO) 4.16 MIL/uL (4.50-6.20); RED CELL DISTRIBUTION WIDTH 16.2 % (11.0-15.5)
[2017-09-27 07:17] LABS: CREATININE 3.1 mg/dL (0.5-1.5)
[2017-09-27 08:00] VITALS: BP 151/99
[2017-09-27] MEDS: FISH OIL 1000 MG/CAP PO SCH (08:39)
[2017-09-27] MEDS: LORATADINE 10 MG TABLET PO SCH (08:39)
[2017-09-27] MEDS: DOCUSATE SODIUM 100 MG CAP PO SCH (08:39)
[2017-09-27] MEDS: MYCOPHENOLATE MOFETIL 250 MG CAPSULE PO SCH (08:39)
[2017-09-27] MEDS: CITALOPRAM 20 MG TABLET PO SCH (08:40)
[2017-09-27] MEDS: MULTIVITAMIN WITH MINERALS TABLET PO SCH (08:40)
[2017-09-27] MEDS: PREDNISONE 5 MG TABLET PO SCH (08:40)
[2017-09-27] MEDS: FLUTICASONE PROPIONATE 50MCG/SPRAY 16 GM BOTTLE EN SCH (08:40)
[2017-09-27] MEDS: LINAGLIPTIN 5 MG TABLET PO SCH (08:40)
[2017-09-27] MEDS: FUROSEMIDE 40 MG TABLET PO SCH ×2 (08:40→15:24)
[2017-09-27] MEDS: METOPROLOL SUCCINATE 100 MG PO SCH (08:41)
[2017-09-27] MEDS: COLESEVELAM HCL 625 MG TAB PO SCH ×3 (08:43→20:46)
[2017-09-27] MEDS: CYCLOSPORINE, MODIFIED 25 MG CAPSULE PO SCH (08:44)
[2017-09-27 12:00] VITALS: BP 136/100
[2017-09-27] MEDS: CLONIDINE HCL 0.2 MG TABLET PO PRN ×2 (15:24→23:52)
[2017-09-27 16:00] VITALS: BP 162/109
[2017-09-27 19:46] VITALS: BP 127/89
[2017-09-27] MEDS: FLUCONAZOLE 100 MG TAB PO SCH (20:46)
[2017-09-27 23:31] VITALS: BP 154/101
[2017-09-28 03:25] VITALS: BP 150/102
[2017-09-28] MEDS: PANTOPRAZOLE SODIUM 40 MG TABLET.DR PO SCH (06:00)
[2017-09-28] MEDS: INSULIN HUMULIN R 100 UNIT/ML 3ML SQ SCH ×4 (06:11→21:00)
[2017-09-28 06:14] LABS: BASOPHILS % (AUTO) 0.5 % (0.0-5.0); EOSINOPHILS % (AUTO) 1.3 % (0.0-8.0); HEMATOCRIT 34.4 % (42-54); LYMPHOCYTES % (AUTO) 20.2 % (21.0-51.0); MEAN CORPUSCULAR HEMOGLOBIN 29.8 pg (27.0-33.0); MEAN CORPUSCULAR HGB CONC 33.4 g/dL (32.0-36.0); MEAN CORPUSCULAR VOLUME 89.3 fL (79-99); MONOCYTES % (AUTO) 9.9 % (3.0-13.0); NEUTROPHILS % (AUTO) 68.1 % (40.0-77.0); NUCLEATED RED BLOOD CELLS 0.1 % (0.0-0.19); PLATELET COUNT (AUTO) 291 K/uL (130-400); RED BLOOD CELL COUNT(AUTO) 3.85 MIL/uL (4.50-6.20); RED CELL DISTRIBUTION WIDTH 16.4 % (11.0-15.5); WHITE BLOOD COUNT (AUTO) 11.6 K/uL (4.8-10.8)
[2017-09-28 06:31] LABS: ALBUMIN 2.4 g/dL (3.5-5.0); BILIRUBIN,TOTAL 0.2 mg/dL (0.2-1.0); CREATININE 3.2 mg/dL (0.5-1.5); POTASSIUM 4.2 mmol/L (3.5-5.1); TOTAL PROTEIN, SERUM 5.9 g/dL (6.0-8.3)
[2017-09-28 08:00] VITALS: BP 149/95
[2017-09-28] MEDS: METOPROLOL SUCCINATE 150 MG PO SCH (09:00)
[2017-09-28] MEDS: COLESEVELAM HCL 625 MG TAB PO SCH ×3 (11:49→21:40)
[2017-09-28] MEDS: CITALOPRAM 20 MG TABLET PO SCH (11:53)
[2017-09-28] MEDS: DOCUSATE SODIUM 100 MG CAP PO SCH (11:53)
[2017-09-28] MEDS: LORATADINE 10 MG TABLET PO SCH (11:53)
[2017-09-28] MEDS: MYCOPHENOLATE MOFETIL 250 MG CAPSULE PO SCH (11:54)
[2017-09-28] MEDS: MULTIVITAMIN WITH MINERALS TABLET PO SCH (11:56)
[2017-09-28] MEDS: LINAGLIPTIN 5 MG TABLET PO SCH (11:56)
[2017-09-28] MEDS: CYCLOSPORINE, MODIFIED 25 MG CAPSULE PO SCH (11:56)
[2017-09-28] MEDS: FUROSEMIDE 40 MG TABLET PO SCH ×2 (11:57→16:30)
[2017-09-28] MEDS: PREDNISONE 5 MG TABLET PO SCH (11:57)
[2017-09-28] MEDS: FISH OIL 1000 MG/CAP PO SCH (11:57)
[2017-09-28 12:00] VITALS: BP 143/97
[2017-09-28] MEDS: FLUTICASONE PROPIONATE 50MCG/SPRAY 16 GM BOTTLE EN SCH (12:05)
[2017-09-28 16:00] VITALS: BP 145/96
[2017-09-28 19:00] VITALS: BP 139/98
[2017-09-28] MEDS: FLUCONAZOLE 100 MG TAB PO SCH (21:39)
[2017-09-29] VITALS: BP 153/102
[2017-09-29] MEDS: CLONIDINE HCL 0.2 MG TABLET PO PRN (01:15)
[2017-09-29 04:00] VITALS: BP 143/98
[2017-09-29] MEDS: INSULIN HUMULIN R 100 UNIT/ML 3ML SQ SCH ×3 (06:10→16:50)
[2017-09-29] MEDS: PANTOPRAZOLE SODIUM 40 MG TABLET.DR PO SCH (06:27)
[2017-09-29 08:00] VITALS: BP 157/107
[2017-09-29 08:46] LABS: HEMATOCRIT 36.5 % (42-54); MEAN CORPUSCULAR HEMOGLOBIN 28.8 pg (27.0-33.0); MEAN CORPUSCULAR HGB CONC 32.6 g/dL (32.0-36.0); MEAN CORPUSCULAR VOLUME 88.3 fL (79-99); NUCLEATED RED BLOOD CELLS 0.2 % (0.0-0.19); PLATELET COUNT (AUTO) 280 K/uL (130-400); RED BLOOD CELL COUNT(AUTO) 4.14 MIL/uL (4.50-6.20); RED CELL DISTRIBUTION WIDTH 16.1 % (11.0-15.5); WHITE BLOOD COUNT (AUTO) 11.6 K/uL (4.8-10.8)
[2017-09-29 08:58] LABS: ALBUMIN 2.5 g/dL (3.5-5.0); BILIRUBIN,TOTAL 0.1 mg/dL (0.2-1.0); CREATININE 3.3 mg/dL (0.5-1.5); POTASSIUM 4.7 mmol/L (3.5-5.1); TOTAL PROTEIN, SERUM 6.1 g/dL (6.0-8.3)
[2017-09-29] MEDS: METOPROLOL SUCCINATE 150 MG PO SCH (09:00)
[2017-09-29] MEDS: FISH OIL 1000 MG/CAP PO SCH (09:51)
[2017-09-29] MEDS: DOCUSATE SODIUM 100 MG CAP PO SCH (09:51)
[2017-09-29] MEDS: COLESEVELAM HCL 625 MG TAB PO SCH ×2 (09:51→16:42)
[2017-09-29] MEDS: PREDNISONE 5 MG TABLET PO SCH (09:51)
[2017-09-29] MEDS: FUROSEMIDE 40 MG TABLET PO SCH ×2 (09:52→16:43)
[2017-09-29] MEDS: CITALOPRAM 20 MG TABLET PO SCH (09:52)
[2017-09-29] MEDS: MYCOPHENOLATE MOFETIL 250 MG CAPSULE PO SCH (09:52)
[2017-09-29] MEDS: MULTIVITAMIN WITH MINERALS TABLET PO SCH (09:52)
[2017-09-29] MEDS: LORATADINE 10 MG TABLET PO SCH (09:53)
[2017-09-29] MEDS: LINAGLIPTIN 5 MG TABLET PO SCH (09:53)
[2017-09-29] MEDS: FLUTICASONE PROPIONATE 50MCG/SPRAY 16 GM BOTTLE EN SCH (09:55)
[2017-09-29 11:44] VITALS: BP_SYST 148; BP_SYST 95; BP_DIAS 101; BP_DIAS 52
[2017-09-29 16:00] VITALS: BP 142/100
[2017-09-30] MEDS ORDERED: AMLODIPINE BESYLATE 2.5 MG TAB PO SCH (09:00)
== END 2017-09-29 17:03 | disposition short-term general hospital (02) | DRG 466 ==
LOC: EDH 01:15 → EDHIP 01:16 → 3DH 03:31
PROVIDERS: ADMIT Family Medicine; ATTEND Family Medicine
DX: T86.11 Kidney transplant rejection (principal); I13.2 Hypertensive heart and chronic kidney disease with heart failure and with stage 5 chronic kidney disease, or end stage renal disease; A41.9 Sepsis, unspecified organism; N17.9 Acute kidney failure, unspecified; E11.22 Type 2 diabetes mellitus with diabetic chronic kidney disease; E11.51 Type 2 diabetes mellitus with diabetic peripheral angiopathy without gangrene; N18.6 End stage renal disease; E78.5 Hyperlipidemia, unspecified; I50.9 Heart failure, unspecified; D64.9 Anemia, unspecified; Y83.0 Surgical operation with transplant of whole organ as the cause of abnormal reaction of the patient, or of later complication, without mention of misadventure at the time of the procedure; J44.1 Chronic obstructive pulmonary disease with (acute) exacerbation
CPT/HCPCS: 36415; 71045; 80048; 80053; 81001; 82550; 82948; 84484; 85025; 85027; 85610; 85730; 93005; J0360; J1815; J1940; J7030; J7512; J7515; J7517

== ENCOUNTER 2017-11-12 11:41 | Inpatient (IN) | payer MEDICAID ==
[~2017-11-12] VITALS: Ht 144.8 cm; Wt 49.3 kg
[~2017-11-12 11:41] MED LIST changes: -AMLO2.5T PO; +BUDE10.2 IH; +FURO20TA6 PO; -VALS80TA2 PO
[2017-11-12 13:29] LABS: BASOPHILS % (AUTO) 0.6 % (0.0-5.0); EOSINOPHILS % (AUTO) 0.3 % (0.0-8.0); HEMATOCRIT 32.5 % (42-54); MEAN CORPUSCULAR HEMOGLOBIN 27.9 pg (27.0-33.0); MEAN CORPUSCULAR HGB CONC 32.4 g/dL (32.0-36.0); MEAN CORPUSCULAR VOLUME 86.1 fL (79-99); MONOCYTES % (AUTO) 5.4 % (3.0-13.0); NEUTROPHILS % (AUTO) 89.7 % (40.0-77.0); NUCLEATED RED BLOOD CELLS 0.3 % (0.0-0.19); PLATELET COUNT (AUTO) 356 K/uL (130-400); RED BLOOD CELL COUNT(AUTO) 3.78 MIL/uL (4.50-6.20); RED CELL DISTRIBUTION WIDTH 16.6 % (11.0-15.5); WHITE BLOOD COUNT (AUTO) 17.5 K/uL (4.8-10.8)
[2017-11-12 14:00] LABS: ABG BASE EXCESS -13.7 mmol/L (-2.0-3.0); ABG HCO3 12.7 mmol/L (21.0-28.0); ABG OXYGEN SATURATION 98.2 % (95.0-99.0); ABG PCO2 32 mmHg (35-48)
[2017-11-12] MEDS ORDERED: ZOSYN 3.375GM+NS 50ML 50 ML IV ONE (14:13)
[2017-11-12] MEDS ORDERED: LEVOFLOXACIN 750 MG/D5W 150 ML 150 ML ONE (14:13)
[2017-11-12 14:29] LABS: POTASSIUM 4.7 mmol/L (3.5-5.1)
[2017-11-12 14:36] LABS: ALBUMIN 2.5 g/dL (3.5-5.0); BILIRUBIN,TOTAL 0.2 mg/dL (0.2-1.0); TOTAL PROTEIN, SERUM 7.6 g/dL (6.0-8.3)
[2017-11-12 15:05] LABS: B-TYPE NATRIURETIC PEPTIDE 626 pg/mL (0-100)
[2017-11-12 16:00] VITALS: BP 153/82
[2017-11-12] MEDS ORDERED: AMLO2.5T PO (18:09)
[2017-11-12] MEDS ORDERED: TRAM50TA4 PO (18:09)
[2017-11-12] MEDS ORDERED: FURO40TA5 PO (18:09)
[2017-11-12] MEDS ORDERED: GLUCAGON 1MG KIT 1 MG ML IM PRN (18:30)
[2017-11-12] MEDS ORDERED: ACETAMINOPHEN 325 MG TAB PO PRN (19:30)
[2017-11-12] MEDS: IPRATROPIUM/ALBUTEROL SULFATE 3 ML SOLUTION IH SCH (19:47)
[2017-11-12 19:55] VITALS: BP 114/67
[2017-11-12] MEDS ORDERED: LACTULOSE 20 GM/30 ML UDCUP PO PRN (20:15)
[2017-11-12] MEDS: INSULIN R PO SS1 SQ SCH (20:42)
[2017-11-12 23:22] VITALS: BP 120/82
[2017-11-13] MEDS: IPRATROPIUM/ALBUTEROL SULFATE 3 ML SOLUTION IH SCH ×4 (01:32→18:14)
[2017-11-13 04:02] VITALS: BP 120/81
[2017-11-13 04:21] LABS: BASOPHILS % (AUTO) 0.7 % (0.0-5.0); EOSINOPHILS % (AUTO) 0.4 % (0.0-8.0); HEMATOCRIT 30.5 % (42-54); LYMPHOCYTES % (AUTO) 9.1 % (21.0-51.0); MEAN CORPUSCULAR HEMOGLOBIN 28.9 pg (27.0-33.0); MEAN CORPUSCULAR HGB CONC 33.3 g/dL (32.0-36.0); MEAN CORPUSCULAR VOLUME 86.8 fL (79-99); MONOCYTES % (AUTO) 8.4 % (3.0-13.0); NEUTROPHILS % (AUTO) 81.4 % (40.0-77.0); NUCLEATED RED BLOOD CELLS 0.4 % (0.0-0.19); PLATELET COUNT (AUTO) 366 K/uL (130-400); RED BLOOD CELL COUNT(AUTO) 3.52 MIL/uL (4.50-6.20); RED CELL DISTRIBUTION WIDTH 16.2 % (11.0-15.5); WHITE BLOOD COUNT (AUTO) 11.6 K/uL (4.8-10.8)
[2017-11-13 04:38] LABS: ALBUMIN 2.3 g/dL (3.5-5.0); BILIRUBIN,TOTAL 0.3 mg/dL (0.2-1.0); CREATININE 5.2 mg/dL (0.5-1.5); TOTAL PROTEIN, SERUM 7.1 g/dL (6.0-8.3)
[2017-11-13] MEDS: ZOSYN 3.375GM+NS 50ML 50 ML IV SCH ×2 (04:41→16:59)
[2017-11-13] MEDS: INSULIN R PO SS1 SQ SCH ×4 (05:53→21:00)
[2017-11-13] MEDS ORDERED: ARTIFICAL TEARS SOL 15 ML OU PRN (06:45)
[2017-11-13 07:30] VITALS: BP 119/81
[2017-11-13] MEDS ORDERED: TRAMADOL HCL 50 MG TABLET ONE (08:51)
[2017-11-13] MEDS: ENOXAPARIN SODIUM 40 MG/0.4 ML SYRINGE SQ SCH (09:10)
[2017-11-13] MEDS ORDERED: CLONIDINE PATCH TD (09:19)
[2017-11-13 11:00] VITALS: BP 138/80
[2017-11-13 16:00] VITALS: BP 128/76
[2017-11-13 19:00] VITALS: BP 133/83
[2017-11-13] MEDS: FUROSEMIDE 10 MG/ML 4ML VIAL IV SCH (21:47)
[2017-11-14] VITALS: BP 133/88
[2017-11-14] MEDS: IPRATROPIUM/ALBUTEROL SULFATE 3 ML SOLUTION IH SCH ×4 (00:42→18:27)
[2017-11-14] MEDS ORDERED: HYDROCORTISONE 2.5% 28GM CREAM TP PRN (01:15)
[2017-11-14 04:00] VITALS: BP 127/92
[2017-11-14 04:41] LABS: HEMATOCRIT 30.9 % (42-54); MEAN CORPUSCULAR HEMOGLOBIN 28.3 pg (27.0-33.0); MEAN CORPUSCULAR HGB CONC 32.8 g/dL (32.0-36.0); MEAN CORPUSCULAR VOLUME 86.2 fL (79-99); NUCLEATED RED BLOOD CELLS 0.2 % (0.0-0.19); PLATELET COUNT (AUTO) 373 K/uL (130-400); RED BLOOD CELL COUNT(AUTO) 3.59 MIL/uL (4.50-6.20); RED CELL DISTRIBUTION WIDTH 16.9 % (11.0-15.5); WHITE BLOOD COUNT (AUTO) 11.3 K/uL (4.8-10.8)
[2017-11-14] MEDS: ZOSYN 3.375GM+NS 50ML 50 ML IV SCH ×3 (04:56→19:04)
[2017-11-14 04:59] LABS: CREATININE 5.4 mg/dL (0.5-1.5); POTASSIUM 3.6 mmol/L (3.5-5.1)
[2017-11-14] MEDS: INSULIN R PO SS1 SQ SCH ×4 (07:30→21:56)
[2017-11-14] MEDS: PANTOPRAZOLE SODIUM 40 MG TABLET.DR PO SCH (07:30)
[2017-11-14 08:08] VITALS: BP 133/91
[2017-11-14] MEDS: DOCUSATE SODIUM 100 MG CAP PO SCH (09:00)
[2017-11-14] MEDS: SUB PER P&T FOR ASTHMA OR COPD RECOMMENDATION IH SCH ×2 (09:00→21:00)
[2017-11-14] MEDS: COLESEVELAM HCL 625 MG TAB PO SCH ×3 (09:00→22:00)
[2017-11-14] MEDS: MULTIVITAMIN TABLET PO SCH (09:06)
[2017-11-14] MEDS: MYCOPHENOLATE MOFETIL 250 MG CAPSULE PO SCH (09:06)
[2017-11-14] MEDS: CYCLOSPORINE, MODIFIED 25 MG CAPSULE PO SCH (09:07)
[2017-11-14] MEDS: AMLODIPINE BESYLATE 2.5 MG TAB PO SCH (09:07)
[2017-11-14] MEDS: PREDNISONE 5 MG TABLET PO SCH (09:07)
[2017-11-14] MEDS: LINAGLIPTIN 5 MG TABLET PO SCH (09:07)
[2017-11-14] MEDS: FISH OIL 1000 MG/CAP PO SCH (09:07)
[2017-11-14] MEDS: METOPROLOL TARTRATE 50 MG TAB PO SCH ×2 (09:08→22:02)
[2017-11-14] MEDS: LORATADINE 10 MG TABLET PO SCH (09:08)
[2017-11-14] MEDS: CITALOPRAM 20 MG TABLET PO SCH (09:08)
[2017-11-14] MEDS: FUROSEMIDE 10 MG/ML 4ML VIAL IV SCH ×2 (09:09→22:00)
[2017-11-14] MEDS: ENOXAPARIN SODIUM 40 MG/0.4 ML SYRINGE SQ SCH (09:10)
[2017-11-14] MEDS: FLUTICASONE PROPIONATE 50MCG/SPRAY 16 GM BOTTLE EN SCH (09:15)
[2017-11-14 12:04] VITALS: BP 130/75
[2017-11-14] MEDS ORDERED: SODIUM BICARB 50MEQ 50ML VIAL IV SCH (13:15)
[2017-11-14] MEDS ORDERED: SODIUM BICARB 8.4% IVP SCH (14:00)
[2017-11-14] MEDS ORDERED: SODIUM CHLORIDE 0.9% IVP SCH (14:00)
[2017-11-14] MEDS ORDERED: SYRING IVP SCH (14:00)
[2017-11-14] MEDS: SODIUM BICARBONATE 650 MG TAB PO SCH ×2 (14:32→22:00)
[2017-11-14 16:37] VITALS: BP 135/72
[2017-11-14] MEDS ORDERED: LEVOFLOXACIN 750 MG/D5W 150 ML 150 ML IV SCH (17:00)
[2017-11-14 19:00] VITALS: BP 123/80
[2017-11-14] MEDS: FLUCONAZOLE 100 MG TAB PO SCH (22:01)
[2017-11-15] VITALS: BP 129/82
[2017-11-15] MEDS: DEXTROSE 50%-WATER 50 ML DISP.SYRIN IV PRN (00:28)
[2017-11-15] MEDS: IPRATROPIUM/ALBUTEROL SULFATE 3 ML SOLUTION IH SCH ×5 (00:29→23:57)
[2017-11-15 03:54] LABS: ABG BASE EXCESS -8.3 mmol/L (-2.0-3.0); ABG HCO3 15.8 mmol/L (21.0-28.0); ABG OXYGEN SATURATION 90.1 % (95.0-99.0); ABG PCO2 29 mmHg (35-48)
[2017-11-15 04:00] VITALS: BP 133/89
[2017-11-15] MEDS: PANTOPRAZOLE SODIUM 40 MG TABLET.DR PO SCH (06:20)
[2017-11-15 06:22] LABS: HEMATOCRIT 28.7 % (42-54); MEAN CORPUSCULAR HEMOGLOBIN 29.3 pg (27.0-33.0); MEAN CORPUSCULAR HGB CONC 34.5 g/dL (32.0-36.0); MEAN CORPUSCULAR VOLUME 84.8 fL (79-99); NUCLEATED RED BLOOD CELLS 0.3 % (0.0-0.19); PLATELET COUNT (AUTO) 395 K/uL (130-400); RED BLOOD CELL COUNT(AUTO) 3.38 MIL/uL (4.50-6.20); RED CELL DISTRIBUTION WIDTH 16.5 % (11.0-15.5); WHITE BLOOD COUNT (AUTO) 11.8 K/uL (4.8-10.8)
[2017-11-15 06:34] LABS: INR 1.01 (0.85-1.15); PARTIAL THROMBOPLASTIN TIME 26.7 SEC (26.3-35.5); PROTHROMBIN TIME 10.6 SEC (9.6-11.6)
[2017-11-15 06:39] LABS: CREATININE 5.1 mg/dL (0.5-1.5); POTASSIUM 3.2 mmol/L (3.5-5.1)
[2017-11-15 07:00] LABS: EOSINOPHILS % (MANUAL) 8 % (1-6); LYMPHOCYTES % (MANUAL) 15 % (22-44); MAN.DIFF COMMENT-IMPRESSION MANUAL DIFFERENTIAL; MONOCYTES % (MANUAL) 6 % (2-9); PLATELET MORPHOLOGY COMMENT ADEQUATE; SEGMENTED NEUTROPHILS % 71 % (40-70)
[2017-11-15 07:42] VITALS: BP 146/95
[2017-11-15] MEDS: INSULIN R PO SS1 SQ SCH ×3 (07:54→20:41)
[2017-11-15] MEDS: PREDNISONE 5 MG TABLET PO SCH (10:00)
[2017-11-15] MEDS: COLESEVELAM HCL 625 MG TAB PO SCH ×3 (10:00→20:20)
[2017-11-15] MEDS: SODIUM BICARBONATE 650 MG TAB PO SCH ×3 (10:00→20:21)
[2017-11-15] MEDS: CYCLOSPORINE, MODIFIED 25 MG CAPSULE PO SCH (10:00)
[2017-11-15] MEDS: FISH OIL 1000 MG/CAP PO SCH (10:01)
[2017-11-15] MEDS: MULTIVITAMIN TABLET PO SCH (10:01)
[2017-11-15] MEDS: LORATADINE 10 MG TABLET PO SCH (10:01)
[2017-11-15] MEDS: CITALOPRAM 20 MG TABLET PO SCH (10:02)
[2017-11-15] MEDS: DOCUSATE SODIUM 100 MG CAP PO SCH (10:02)
[2017-11-15] MEDS: METOPROLOL TARTRATE 50 MG TAB PO SCH ×2 (10:02→20:21)
[2017-11-15] MEDS: AMLODIPINE BESYLATE 2.5 MG TAB PO SCH (10:02)
[2017-11-15] MEDS: LINAGLIPTIN 5 MG TABLET PO SCH (10:02)
[2017-11-15] MEDS: FUROSEMIDE 10 MG/ML 4ML VIAL IV SCH (10:03)
[2017-11-15] MEDS: MYCOPHENOLATE MOFETIL 250 MG CAPSULE PO SCH (10:03)
[2017-11-15] MEDS: ENOXAPARIN SODIUM 40 MG/0.4 ML SYRINGE SQ SCH (10:04)
[2017-11-15 11:48] VITALS: BP 142/79
[2017-11-15] MEDS ORDERED: PHARMACY COMMUNICATION MISC SCH ×2 (15:45→16:45)
[2017-11-15] MEDS ORDERED: FUROSEMIDE 10 MG/ML 4ML VIAL ONE (15:48)
[2017-11-15] MEDS ORDERED: FUROSEMIDE 10 MG/ML 2ML VIAL IV SCH (16:01)
[2017-11-15 16:55] VITALS: BP 145/94
[2017-11-15] MEDS: ZOSYN 3.375GM+NS 50ML 50 ML IV SCH (18:03)
[2017-11-15] MEDS: METHYLPREDNISOLONE SOD SUCC 125MG/2ML VIAL IVP SCH ×2 (18:03→23:05)
[2017-11-15 19:00] VITALS: BP 145/74
[2017-11-15] MEDS ORDERED: LINEZOLID 600 MG/ISO-OSM 300 ML IV SCH (19:00)
[2017-11-15] MEDS: FLUCONAZOLE 100 MG TAB PO SCH (20:21)
[2017-11-15] MEDS ORDERED: FUROSEMIDE 10 MG/ML 4ML VIAL IV SCH (21:00)
[2017-11-15] MEDS: SUB PER P&T FOR ASTHMA OR COPD RECOMMENDATION IH SCH (21:00)
[2017-11-16] VITALS (15 sets, daily range): BP systolic 119–146; BP diastolic 70–91
[2017-11-16] MEDS: METHYLPREDNISOLONE SOD SUCC 125MG/2ML VIAL IVP SCH ×4 (03:39→21:28)
[2017-11-16 04:29] LABS: ABG BASE EXCESS 0.7 mmol/L (-2.0-3.0); ABG HCO3 22.6 mmol/L (21.0-28.0); ABG OXYGEN SATURATION 95.8 % (95.0-99.0); ABG PCO2 29 mmHg (35-48)
[2017-11-16] MEDS: FUROSEMIDE 10 MG/ML 4ML VIAL IV SCH ×2 (04:31→15:39)
[2017-11-16] MEDS: ZOSYN 3.375GM+NS 50ML 50 ML IV SCH ×2 (04:31→16:24)
[2017-11-16] MEDS: PANTOPRAZOLE SODIUM 40 MG TABLET.DR PO SCH (06:05)
[2017-11-16] MEDS: INSULIN R PO SS1 SQ SCH ×4 (06:28→20:27)
[2017-11-16] MEDS: IPRATROPIUM/ALBUTEROL SULFATE 3 ML SOLUTION IH SCH ×4 (06:31→23:51)
[2017-11-16 06:39] LABS: HEMATOCRIT 32.3 % (42-54); MEAN CORPUSCULAR HEMOGLOBIN 27.9 pg (27.0-33.0); MEAN CORPUSCULAR HGB CONC 32.5 g/dL (32.0-36.0); MEAN CORPUSCULAR VOLUME 85.7 fL (79-99); NUCLEATED RED BLOOD CELLS 0.2 % (0.0-0.19); PLATELET COUNT (AUTO) 400 K/uL (130-400); RED BLOOD CELL COUNT(AUTO) 3.77 MIL/uL (4.50-6.20); RED CELL DISTRIBUTION WIDTH 16.8 % (11.0-15.5); WHITE BLOOD COUNT (AUTO) 10.5 K/uL (4.8-10.8)
[2017-11-16 07:03] LABS: ALBUMIN 2.3 g/dL (3.5-5.0); BILIRUBIN,TOTAL 0.3 mg/dL (0.2-1.0); CREATININE 5.1 mg/dL (0.5-1.5); MAGNESIUM 1.3 mg/dL (1.80-2.40); POTASSIUM 3.4 mmol/L (3.5-5.1)
[2017-11-16 08:01] LABS: PROTHROMBIN TIME 10.5 SEC (9.6-11.6)
[2017-11-16 08:21] LABS: PARTIAL THROMBOPLASTIN TIME 20.1 SEC (26.3-35.5)
[2017-11-16] MEDS: LINEZOLID 600 MG/ISO-OSM 300 ML IV SCH ×3 (08:28→22:38)
[2017-11-16] MEDS: METOPROLOL TARTRATE 50 MG TAB PO SCH ×2 (08:29→21:00)
[2017-11-16] MEDS: MYCOPHENOLATE MOFETIL 250 MG CAPSULE PO SCH (08:29)
[2017-11-16] MEDS: SODIUM BICARBONATE 650 MG TAB PO SCH ×3 (09:00→21:00)
[2017-11-16] MEDS: DOCUSATE SODIUM 100 MG CAP PO SCH (09:00)
[2017-11-16] MEDS: FISH OIL 1000 MG/CAP PO SCH (09:00)
[2017-11-16] MEDS: AMLODIPINE BESYLATE 2.5 MG TAB PO SCH (09:00)
[2017-11-16] MEDS: CYCLOSPORINE, MODIFIED 25 MG CAPSULE PO SCH (09:00)
[2017-11-16] MEDS: LORATADINE 10 MG TABLET PO SCH (09:00)
[2017-11-16] MEDS: MULTIVITAMIN TABLET PO SCH (09:00)
[2017-11-16] MEDS: ENOXAPARIN SODIUM 40 MG/0.4 ML SYRINGE SQ SCH (09:00)
[2017-11-16] MEDS: CITALOPRAM 20 MG TABLET PO SCH (09:00)
[2017-11-16] MEDS: COLESEVELAM HCL 625 MG TAB PO SCH ×3 (09:00→21:00)
[2017-11-16] MEDS: ONDANSETRON ODT 4 MG TAB PO PRN ×2 (09:49→15:39)
[2017-11-16] MEDS: FLUTICASONE PROPIONATE 50MCG/SPRAY 16 GM BOTTLE EN SCH (09:50)
[2017-11-16] MEDS: SUB PER P&T FOR ASTHMA OR COPD RECOMMENDATION IH SCH ×2 (09:50→21:00)
[2017-11-16] MEDS ORDERED: HEPARIN SODIUM 1000UNIT/ML 10ML VIAL ONE (11:43)
[2017-11-16] MEDS ORDERED: LIDOCAINE HCL 1% MDV 50ML VIAL ONE (11:43)
[2017-11-16] MEDS ORDERED: 0.9% SODIUM CHLORIDE 250 ML IV BAG IV PRN (17:45)
[2017-11-16] MEDS ORDERED: SODIUM CHLORIDE 0.9% 1000ML 1,000 ML IV PRN (17:45)
[2017-11-16] MEDS ORDERED: ALBUMIN (HUMAN) 25% 100 ML IV PRN (17:45)
[2017-11-16] MEDS ORDERED: HEPARIN SODIUM 5000UNIT/ML 1ML VIAL IJ PRN (17:45)
[2017-11-16] MEDS: FLUCONAZOLE 100 MG TAB PO SCH (21:00)
[2017-11-16 23:04] LABS: HEMATOCRIT 29.4 % (42-54)
[2017-11-16 23:19] LABS: ALBUMIN 2.3 g/dL (3.5-5.0); CREATININE 5.5 mg/dL (0.5-1.5)
[2017-11-17 00:14] LABS: % IRON SATURATION 15.6 % (30-44)
[2017-11-17] MEDS: SODIUM BICARBONATE 650 MG TAB PO SCH ×3 (02:54→22:08)
[2017-11-17] MEDS: ONDANSETRON ODT 4 MG TAB PO PRN (02:54)
[2017-11-17 03:35] VITALS: BP 121/75
[2017-11-17] MEDS: METHYLPREDNISOLONE SOD SUCC 125MG/2ML VIAL IVP SCH ×3 (03:56→17:24)
[2017-11-17] MEDS: ZOSYN 3.375GM+NS 50ML 50 ML IV SCH ×2 (03:56→16:57)
[2017-11-17] MEDS: FUROSEMIDE 10 MG/ML 4ML VIAL IV SCH ×2 (03:56→16:54)
[2017-11-17 05:20] LABS: BASOPHILS % (AUTO) 0.2 % (0.0-5.0); HEMATOCRIT 32.5 % (42-54); LYMPHOCYTES % (AUTO) 1.9 % (21.0-51.0); MEAN CORPUSCULAR HEMOGLOBIN 27.4 pg (27.0-33.0); MEAN CORPUSCULAR HGB CONC 31.8 g/dL (32.0-36.0); MEAN CORPUSCULAR VOLUME 86.1 fL (79-99); MONOCYTES % (AUTO) 4.5 % (3.0-13.0); NEUTROPHILS % (AUTO) 93.4 % (40.0-77.0); NUCLEATED RED BLOOD CELLS 0.5 % (0.0-0.19); PLATELET COUNT (AUTO) 399 K/uL (130-400); RED BLOOD CELL COUNT(AUTO) 3.77 MIL/uL (4.50-6.20); WHITE BLOOD COUNT (AUTO) 17.1 K/uL (4.8-10.8)
[2017-11-17 05:31] LABS: ALBUMIN 2.6 g/dL (3.5-5.0); BILIRUBIN,TOTAL 0.3 mg/dL (0.2-1.0); CREATININE 3.4 mg/dL (0.5-1.5); MAGNESIUM 1.8 mg/dL (1.80-2.40); POTASSIUM 3.6 mmol/L (3.5-5.1); TOTAL PROTEIN, SERUM 7.2 g/dL (6.0-8.3)
[2017-11-17] MEDS: PANTOPRAZOLE SODIUM 40 MG TABLET.DR PO SCH (06:26)
[2017-11-17] MEDS: INSULIN R PO SS1 SQ SCH ×4 (06:27→21:00)
[2017-11-17] MEDS: IPRATROPIUM/ALBUTEROL SULFATE 3 ML SOLUTION IH SCH ×4 (07:07→23:33)
[2017-11-17] MEDS: LINEZOLID 600 MG/ISO-OSM 300 ML IV SCH ×2 (07:54→22:08)
[2017-11-17 08:00] VITALS: BP 112/82
[2017-11-17] MEDS ORDERED: CLONIDINE 0.1 MG/ 24 HR PATCH TD SCH (09:00)
[2017-11-17] MEDS: FLUTICASONE PROPIONATE 50MCG/SPRAY 16 GM BOTTLE EN SCH (10:27)
[2017-11-17] MEDS: SUB PER P&T FOR ASTHMA OR COPD RECOMMENDATION IH SCH (10:27)
[2017-11-17] MEDS: CITALOPRAM 20 MG TABLET PO SCH (10:28)
[2017-11-17] MEDS: MYCOPHENOLATE MOFETIL 250 MG CAPSULE PO SCH (10:28)
[2017-11-17] MEDS: DOCUSATE SODIUM 100 MG CAP PO SCH (10:28)
[2017-11-17] MEDS: FISH OIL 1000 MG/CAP PO SCH (10:28)
[2017-11-17] MEDS: METOPROLOL TARTRATE 50 MG TAB PO SCH ×2 (10:29→22:08)
[2017-11-17] MEDS: MULTIVITAMIN TABLET PO SCH (10:29)
[2017-11-17] MEDS: LORATADINE 10 MG TABLET PO SCH (10:29)
[2017-11-17] MEDS: AMLODIPINE BESYLATE 2.5 MG TAB PO SCH (10:29)
[2017-11-17] MEDS: ENOXAPARIN SODIUM 40 MG/0.4 ML SYRINGE SQ SCH (10:30)
[2017-11-17] MEDS: COLESEVELAM HCL 625 MG TAB PO SCH ×3 (10:30→22:08)
[2017-11-17 12:00] VITALS: BP 120/86
[2017-11-17 16:00] VITALS: BP 125/87
[2017-11-17] MEDS ORDERED: HEPARIN SODIUM 5000UNIT/ML 1ML VIAL IJ PRN (18:45)
[2017-11-17] MEDS: BUDESONIDE 0.5 MG/2 ML INH IH SCH (18:55)
[2017-11-17 20:37] VITALS: BP 153/81
[2017-11-17] MEDS: FLUCONAZOLE 100 MG TAB PO SCH (22:08)
[2017-11-18] VITALS (7 sets, daily range): BP systolic 108–151; BP diastolic 57–94
[2017-11-18] MEDS: METHYLPREDNISOLONE SOD SUCC 125MG/2ML VIAL IVP SCH ×2 (01:53→08:36)
[2017-11-18] MEDS: FUROSEMIDE 10 MG/ML 4ML VIAL IV SCH ×2 (04:37→14:30)
[2017-11-18] MEDS: ZOSYN 3.375GM+NS 50ML 50 ML IV SCH ×2 (04:37→17:20)
[2017-11-18 05:35] LABS: BASOPHILS % (AUTO) 0.1 % (0.0-5.0); EOSINOPHILS % (AUTO) 0.4 % (0.0-8.0); HEMATOCRIT 31.3 % (42-54); LYMPHOCYTES % (AUTO) 5.3 % (21.0-51.0); MEAN CORPUSCULAR HEMOGLOBIN 27.4 pg (27.0-33.0); MEAN CORPUSCULAR HGB CONC 31.8 g/dL (32.0-36.0); MONOCYTES % (AUTO) 3.7 % (3.0-13.0); NEUTROPHILS % (AUTO) 90.5 % (40.0-77.0); NUCLEATED RED BLOOD CELLS 0.3 % (0.0-0.19); PLATELET COUNT (AUTO) 313 K/uL (130-400); RED BLOOD CELL COUNT(AUTO) 3.64 MIL/uL (4.50-6.20); RED CELL DISTRIBUTION WIDTH 16.6 % (11.0-15.5); WHITE BLOOD COUNT (AUTO) 12.7 K/uL (4.8-10.8)
[2017-11-18 05:46] LABS: CREATININE 2.7 mg/dL (0.5-1.5); MAGNESIUM 1.7 mg/dL (1.80-2.40); PHOSPHORUS 4.1 mg/dL (2.5-4.9); POTASSIUM 3.9 mmol/L (3.5-5.1)
[2017-11-18] MEDS: IPRATROPIUM/ALBUTEROL SULFATE 3 ML SOLUTION IH SCH ×4 (06:17→23:08)
[2017-11-18] MEDS: BUDESONIDE 0.5 MG/2 ML INH IH SCH ×2 (06:17→18:20)
[2017-11-18] MEDS: PANTOPRAZOLE SODIUM 40 MG TABLET.DR PO SCH (06:56)
[2017-11-18] MEDS: INSULIN R PO SS1 SQ SCH ×4 (07:39→21:00)
[2017-11-18] MEDS: SODIUM BICARBONATE 650 MG TAB PO SCH ×3 (08:34→21:36)
[2017-11-18] MEDS: METOPROLOL TARTRATE 50 MG TAB PO SCH ×2 (08:34→21:36)
[2017-11-18] MEDS: CYCLOSPORINE, MODIFIED 25 MG CAPSULE PO SCH (08:34)
[2017-11-18] MEDS: LINEZOLID 600 MG/ISO-OSM 300 ML IV SCH ×2 (08:34→21:38)
[2017-11-18] MEDS: CITALOPRAM 20 MG TABLET PO SCH (08:34)
[2017-11-18] MEDS: FISH OIL 1000 MG/CAP PO SCH (08:35)
[2017-11-18] MEDS: AMLODIPINE BESYLATE 2.5 MG TAB PO SCH (08:35)
[2017-11-18] MEDS: MYCOPHENOLATE MOFETIL 250 MG CAPSULE PO SCH (08:35)
[2017-11-18] MEDS: COLESEVELAM HCL 625 MG TAB PO SCH ×3 (08:35→21:36)
[2017-11-18] MEDS: MULTIVITAMIN TABLET PO SCH (08:35)
[2017-11-18] MEDS: LORATADINE 10 MG TABLET PO SCH (08:35)
[2017-11-18] MEDS: DOCUSATE SODIUM 100 MG CAP PO SCH (08:35)
[2017-11-18] MEDS: ENOXAPARIN SODIUM 40 MG/0.4 ML SYRINGE SQ SCH (08:36)
[2017-11-18] MEDS: FLUTICASONE PROPIONATE 50MCG/SPRAY 16 GM BOTTLE EN SCH (08:45)
[2017-11-18] MEDS ORDERED: ALBUTEROL SULFATE 0.083% 2.5 MG/3 ML INH IH SCH (12:00)
[2017-11-18] MEDS ORDERED: IPRATROPIUM 0.5 MG/2.5 ML INH IH SCH (12:00)
[2017-11-18 13:17] LABS: HEPATITIS Bs ANTIGEN SCREEN P Negative (Negative)
[2017-11-18] MEDS ORDERED: MAGNESIUM 2GM PREMIX 50ML 50 ML IV SCH (14:45)
[2017-11-18] MEDS: DEXTROSE 50%-WATER 50 ML DISP.SYRIN IV PRN (17:19)
[2017-11-18] MEDS ORDERED: BUDESONIDE 0.5 MG/2 ML INH IH SCH (18:00)
[2017-11-18] MEDS ORDERED: METHYLPREDNISOLONE SOD SUCC 40MG/ML 1ML IVP SCH (21:00)
[2017-11-18] MEDS: FLUCONAZOLE 100 MG TAB PO SCH (21:37)
[2017-11-18] MEDS ORDERED: SODIUM CHLORIDE 0.9% 500ML 500 ML IV ONE (23:08)
[2017-11-19 03:59] VITALS: BP 126/85
[2017-11-19] MEDS: FUROSEMIDE 10 MG/ML 4ML VIAL IV SCH ×2 (04:04→17:04)
[2017-11-19] MEDS: ZOSYN 3.375GM+NS 50ML 50 ML IV SCH ×2 (05:09→17:04)
[2017-11-19 05:36] LABS: HEMATOCRIT 31.8 % (42-54); MEAN CORPUSCULAR HEMOGLOBIN 27.7 pg (27.0-33.0); MEAN CORPUSCULAR HGB CONC 32.3 g/dL (32.0-36.0); NUCLEATED RED BLOOD CELLS 0.3 % (0.0-0.19); PLATELET COUNT (AUTO) 305 K/uL (130-400); RED CELL DISTRIBUTION WIDTH 16.6 % (11.0-15.5); WHITE BLOOD COUNT (AUTO) 10.8 K/uL (4.8-10.8)
[2017-11-19 05:45] LABS: MAGNESIUM 3.6 mg/dL (1.80-2.40); POTASSIUM 4.1 mmol/L (3.5-5.1)
[2017-11-19] MEDS: BUDESONIDE 0.5 MG/2 ML INH IH SCH ×2 (06:24→18:06)
[2017-11-19] MEDS: IPRATROPIUM/ALBUTEROL SULFATE 3 ML SOLUTION IH SCH ×4 (06:24→23:41)
[2017-11-19 07:00] VITALS: BP 126/91
[2017-11-19] MEDS: ENOXAPARIN SODIUM 40 MG/0.4 ML SYRINGE SQ SCH (09:27)
[2017-11-19] MEDS: FOLIC ACID/VITAMIN B COMP W-C 1 MG CAPSULE PO SCH (09:28)
[2017-11-19] MEDS: METOPROLOL TARTRATE 50 MG TAB PO SCH ×2 (09:28→20:53)
[2017-11-19] MEDS: MYCOPHENOLATE MOFETIL 250 MG CAPSULE PO SCH (09:28)
[2017-11-19] MEDS: DOCUSATE SODIUM 100 MG CAP PO SCH (09:29)
[2017-11-19] MEDS: MULTIVITAMIN TABLET PO SCH (09:29)
[2017-11-19] MEDS: CITALOPRAM 20 MG TABLET PO SCH (09:29)
[2017-11-19] MEDS: LORATADINE 10 MG TABLET PO SCH (09:29)
[2017-11-19] MEDS: COLESEVELAM HCL 625 MG TAB PO SCH ×3 (09:29→20:53)
[2017-11-19] MEDS: FISH OIL 1000 MG/CAP PO SCH (09:29)
[2017-11-19] MEDS: PREDNISONE 20 MG TABLET PO SCH (09:29)
[2017-11-19] MEDS: FLUTICASONE PROPIONATE 50MCG/SPRAY 16 GM BOTTLE EN SCH (09:38)
[2017-11-19] MEDS: PANTOPRAZOLE SODIUM 40 MG TABLET.DR PO SCH (09:55)
[2017-11-19] MEDS: LINEZOLID 600 MG/ISO-OSM 300 ML IV SCH ×2 (09:55→20:50)
[2017-11-19 11:00] VITALS: BP 131/72
[2017-11-19] MEDS: INSULIN R PO SS1 SQ SCH ×4 (11:30→20:50)
[2017-11-19 16:00] VITALS: BP 107/57
[2017-11-19 19:45] VITALS: BP 116/77
[2017-11-19] MEDS: FLUCONAZOLE 100 MG TAB PO SCH (20:53)
[2017-11-19 23:52] VITALS: BP 115/79
[2017-11-20 03:15] VITALS: BP 129/84
[2017-11-20] MEDS: FUROSEMIDE 10 MG/ML 4ML VIAL IV SCH ×2 (04:16→16:37)
[2017-11-20] MEDS: ZOSYN 3.375GM+NS 50ML 50 ML IV SCH ×2 (04:45→17:40)
[2017-11-20 05:34] LABS: HEMATOCRIT 32.2 % (42-54); MEAN CORPUSCULAR HEMOGLOBIN 27.2 pg (27.0-33.0); MEAN CORPUSCULAR VOLUME 87.9 fL (79-99); NUCLEATED RED BLOOD CELLS 0.1 % (0.0-0.19); PLATELET COUNT (AUTO) 272 K/uL (130-400); RED BLOOD CELL COUNT(AUTO) 3.67 MIL/uL (4.50-6.20); RED CELL DISTRIBUTION WIDTH 16.6 % (11.0-15.5); WHITE BLOOD COUNT (AUTO) 12.7 K/uL (4.8-10.8)
[2017-11-20 05:55] LABS: CREATININE 3.2 mg/dL (0.5-1.5); POTASSIUM 3.8 mmol/L (3.5-5.1)
[2017-11-20] MEDS: INSULIN R PO SS1 SQ SCH ×4 (06:19→20:52)
[2017-11-20] MEDS: IPRATROPIUM/ALBUTEROL SULFATE 3 ML SOLUTION IH SCH ×3 (06:34→17:57)
[2017-11-20] MEDS: BUDESONIDE 0.5 MG/2 ML INH IH SCH ×2 (06:34→17:57)
[2017-11-20] MEDS: PANTOPRAZOLE SODIUM 40 MG TABLET.DR PO SCH (07:30)
[2017-11-20 08:00] VITALS: BP 136/93
[2017-11-20] MEDS: ENOXAPARIN SODIUM 40 MG/0.4 ML SYRINGE SQ SCH (10:12)
[2017-11-20] MEDS: DOCUSATE SODIUM 100 MG CAP PO SCH (10:12)
[2017-11-20] MEDS: LINEZOLID 600 MG/ISO-OSM 300 ML IV SCH ×2 (10:12→20:54)
[2017-11-20] MEDS: CYCLOSPORINE, MODIFIED 25 MG CAPSULE PO SCH (10:13)
[2017-11-20] MEDS: FOLIC ACID/VITAMIN B COMP W-C 1 MG CAPSULE PO SCH (10:13)
[2017-11-20] MEDS: CITALOPRAM 20 MG TABLET PO SCH (10:13)
[2017-11-20] MEDS: PREDNISONE 20 MG TABLET PO SCH (10:13)
[2017-11-20] MEDS: COLESEVELAM HCL 625 MG TAB PO SCH ×3 (10:13→20:58)
[2017-11-20] MEDS: MULTIVITAMIN TABLET PO SCH (10:14)
[2017-11-20] MEDS: FLUTICASONE PROPIONATE 50MCG/SPRAY 16 GM BOTTLE EN SCH (10:14)
[2017-11-20] MEDS: FISH OIL 1000 MG/CAP PO SCH (10:14)
[2017-11-20] MEDS: METOPROLOL TARTRATE 50 MG TAB PO SCH ×2 (10:14→20:58)
[2017-11-20] MEDS: MYCOPHENOLATE MOFETIL 250 MG CAPSULE PO SCH (10:14)
[2017-11-20] MEDS: LORATADINE 10 MG TABLET PO SCH (10:14)
[2017-11-20 11:49] VITALS: BP 123/89
[2017-11-20 16:00] VITALS: BP 123/82
[2017-11-20 20:00] VITALS: BP 124/88
[2017-11-20] MEDS: FLUCONAZOLE 100 MG TAB PO SCH (20:58)
[2017-11-20] MEDS ORDERED: INSULIN GLARGINE 100 UNITS/ML 10 ML VIAL SQ ONE (22:30)
[2017-11-20 23:38] VITALS: BP 154/88
[2017-11-21] MEDS: IPRATROPIUM/ALBUTEROL SULFATE 3 ML SOLUTION IH SCH ×4 (00:51→17:50)
[2017-11-21 04:00] VITALS: BP 145/89
[2017-11-21] MEDS: ZOSYN 3.375GM+NS 50ML 50 ML IV SCH ×2 (05:50→16:52)
[2017-11-21] MEDS: FUROSEMIDE 10 MG/ML 4ML VIAL IV SCH ×2 (05:50→16:53)
[2017-11-21 06:09] LABS: CREATININE 3.5 mg/dL (0.5-1.5); PHOSPHORUS 5.9 mg/dL (2.5-4.9); POTASSIUM 3.1 mmol/L (3.5-5.1)
[2017-11-21 06:15] LABS: HEMATOCRIT 31.2 % (42-54); MEAN CORPUSCULAR HEMOGLOBIN 28.2 pg (27.0-33.0); MEAN CORPUSCULAR HGB CONC 32.8 g/dL (32.0-36.0); NUCLEATED RED BLOOD CELLS 0.1 % (0.0-0.19); PLATELET COUNT (AUTO) 245 K/uL (130-400); RED BLOOD CELL COUNT(AUTO) 3.62 MIL/uL (4.50-6.20); RED CELL DISTRIBUTION WIDTH 16.4 % (11.0-15.5)
[2017-11-21] MEDS: BUDESONIDE 0.5 MG/2 ML INH IH SCH ×2 (06:43→17:50)
[2017-11-21] MEDS: INSULIN R PO SS1 SQ SCH ×4 (06:52→21:27)
[2017-11-21 06:57] LABS: BAND NEUTROPHILS % (MANUAL) 1 % (0-2); EOSINOPHILS % (MANUAL) 2 % (1-6); LYMPHOCYTES % (MANUAL) 10 % (22-44); MONOCYTES % (MANUAL) 5 % (2-9); SEGMENTED NEUTROPHILS % 82 % (40-70)
[2017-11-21 06:58] LABS: MAN.DIFF COMMENT-IMPRESSION MANUAL DIFFERENTIAL; PLATELET MORPHOLOGY COMMENT ADEQUATE
[2017-11-21] MEDS: INSULIN GLARGINE 100 UNITS/ML 10 ML VIAL SQ SCH (06:58)
[2017-11-21] MEDS: PANTOPRAZOLE SODIUM 40 MG TABLET.DR PO SCH (06:58)
[2017-11-21] MEDS: ENOXAPARIN SODIUM 40 MG/0.4 ML SYRINGE SQ SCH (08:09)
[2017-11-21] MEDS: METOPROLOL TARTRATE 50 MG TAB PO SCH ×2 (08:09→21:32)
[2017-11-21 08:14] VITALS: BP 137/95
[2017-11-21] MEDS: FISH OIL 1000 MG/CAP PO SCH (09:00)
[2017-11-21] MEDS: FLUTICASONE PROPIONATE 50MCG/SPRAY 16 GM BOTTLE EN SCH (09:00)
[2017-11-21 12:16] VITALS: BP 164/68
[2017-11-21] MEDS: LINEZOLID 600 MG/ISO-OSM 300 ML IV SCH ×2 (12:48→21:33)
[2017-11-21] MEDS: FOLIC ACID/VITAMIN B COMP W-C 1 MG CAPSULE PO SCH (12:49)
[2017-11-21] MEDS: MYCOPHENOLATE MOFETIL 250 MG CAPSULE PO SCH (12:49)
[2017-11-21] MEDS: COLESEVELAM HCL 625 MG TAB PO SCH ×3 (12:49→21:32)
[2017-11-21] MEDS: LORATADINE 10 MG TABLET PO SCH (12:49)
[2017-11-21] MEDS: DOCUSATE SODIUM 100 MG CAP PO SCH (12:50)
[2017-11-21] MEDS: CITALOPRAM 20 MG TABLET PO SCH (12:50)
[2017-11-21] MEDS: MULTIVITAMIN TABLET PO SCH (12:51)
[2017-11-21] MEDS: PREDNISONE 20 MG TABLET PO SCH (12:51)
[2017-11-21 16:41] VITALS: BP 112/75
[2017-11-21 19:28] VITALS: BP 104/69
[2017-11-21] MEDS: FLUCONAZOLE 100 MG TAB PO SCH (21:32)
[2017-11-21 23:50] VITALS: BP 114/71
[2017-11-22] MEDS: IPRATROPIUM/ALBUTEROL SULFATE 3 ML SOLUTION IH SCH ×5 (00:56→23:33)
[2017-11-22 03:45] VITALS: BP 136/85
[2017-11-22] MEDS: ZOSYN 3.375GM+NS 50ML 50 ML IV SCH ×2 (04:18→17:01)
[2017-11-22 05:33] LABS: HEMATOCRIT 29.7 % (42-54); MEAN CORPUSCULAR HEMOGLOBIN 29.1 pg (27.0-33.0); MEAN CORPUSCULAR HGB CONC 33.2 g/dL (32.0-36.0); MEAN CORPUSCULAR VOLUME 87.6 fL (79-99); NUCLEATED RED BLOOD CELLS 0.1 % (0.0-0.19); PLATELET COUNT (AUTO) 263 K/uL (130-400); RED BLOOD CELL COUNT(AUTO) 3.39 MIL/uL (4.50-6.20); RED CELL DISTRIBUTION WIDTH 16.8 % (11.0-15.5); WHITE BLOOD COUNT (AUTO) 14.9 K/uL (4.8-10.8)
[2017-11-22 05:46] LABS: CREATININE 3.3 mg/dL (0.5-1.5); POTASSIUM 4.1 mmol/L (3.5-5.1)
[2017-11-22] MEDS: INSULIN R PO SS1 SQ SCH ×4 (05:47→22:55)
[2017-11-22] MEDS: FUROSEMIDE 10 MG/ML 4ML VIAL IV SCH ×2 (06:06→17:02)
[2017-11-22 06:28] LABS: LYMPHOCYTES % (MANUAL) 16 % (22-44); MAN.DIFF COMMENT-IMPRESSION MANUAL DIFFERENTIAL; MONOCYTES % (MANUAL) 5 % (2-9); PLATELET MORPHOLOGY COMMENT ADEQUATE; SEGMENTED NEUTROPHILS % 79 % (40-70)
[2017-11-22] MEDS: BUDESONIDE 0.5 MG/2 ML INH IH SCH ×2 (06:30→18:49)
[2017-11-22] MEDS: INSULIN GLARGINE 100 UNITS/ML 10 ML VIAL SQ SCH (06:54)
[2017-11-22] MEDS: PANTOPRAZOLE SODIUM 40 MG TABLET.DR PO SCH (06:54)
[2017-11-22 08:00] VITALS: BP 118/78
[2017-11-22] MEDS: FISH OIL 1000 MG/CAP PO SCH (09:00)
[2017-11-22] MEDS: LINEZOLID 600 MG/ISO-OSM 300 ML IV SCH ×2 (09:06→20:49)
[2017-11-22] MEDS: METOPROLOL TARTRATE 50 MG TAB PO SCH ×2 (09:07→20:49)
[2017-11-22] MEDS: FOLIC ACID/VITAMIN B COMP W-C 1 MG CAPSULE PO SCH (09:08)
[2017-11-22] MEDS: CITALOPRAM 20 MG TABLET PO SCH (09:08)
[2017-11-22] MEDS: CYCLOSPORINE, MODIFIED 25 MG CAPSULE PO SCH (09:08)
[2017-11-22] MEDS: COLESEVELAM HCL 625 MG TAB PO SCH ×3 (09:08→20:49)
[2017-11-22] MEDS: MULTIVITAMIN TABLET PO SCH (09:09)
[2017-11-22] MEDS: LORATADINE 10 MG TABLET PO SCH (09:09)
[2017-11-22] MEDS: ENOXAPARIN SODIUM 40 MG/0.4 ML SYRINGE SQ SCH (09:09)
[2017-11-22] MEDS: DOCUSATE SODIUM 100 MG CAP PO SCH (09:09)
[2017-11-22] MEDS: MYCOPHENOLATE MOFETIL 250 MG CAPSULE PO SCH (09:09)
[2017-11-22] MEDS: PREDNISONE 20 MG TABLET PO SCH (09:15)
[2017-11-22] MEDS: FLUTICASONE PROPIONATE 50MCG/SPRAY 16 GM BOTTLE EN SCH (09:16)
[2017-11-22 12:00] VITALS: BP 126/76
[2017-11-22 16:00] VITALS: BP 118/83
[2017-11-22 20:34] VITALS: BP 114/73
[2017-11-22] MEDS: FLUCONAZOLE 100 MG TAB PO SCH (20:49)
[2017-11-22 23:39] VITALS: BP 123/86
[2017-11-23] VITALS (23 sets, daily range): BP systolic 107–143; BP diastolic 73–90
[2017-11-23] MEDS: ZOSYN 3.375GM+NS 50ML 50 ML IV SCH ×2 (04:18→16:40)
[2017-11-23] MEDS: FUROSEMIDE 10 MG/ML 4ML VIAL IV SCH ×2 (04:18→16:40)
[2017-11-23] MEDS: IPRATROPIUM/ALBUTEROL SULFATE 3 ML SOLUTION IH SCH ×4 (05:46→23:24)
[2017-11-23] MEDS: BUDESONIDE 0.5 MG/2 ML INH IH SCH ×2 (06:01→18:07)
[2017-11-23] MEDS: INSULIN R PO SS1 SQ SCH ×4 (06:29→21:00)
[2017-11-23 06:30] LABS: INR 0.92 (0.85-1.15); PARTIAL THROMBOPLASTIN TIME 22.9 SEC (26.3-35.5); PROTHROMBIN TIME 9.7 SEC (9.6-11.6)
[2017-11-23] MEDS ORDERED: HEPARIN SODIUM 1000UNIT/ML 10ML VIAL ONE (06:54)
[2017-11-23] MEDS: PANTOPRAZOLE SODIUM 40 MG TABLET.DR PO SCH (07:30)
[2017-11-23] MEDS ORDERED: BUPIVACAINE/PF 0.25% 30ML VIAL IJ ONE (07:42)
[2017-11-23] MEDS ORDERED: LIDOCAINE HCL 1% 20 ML VIAL ONE (07:42)
[2017-11-23] MEDS ORDERED: SODIUM BICARB [NEONATAL] 4.2% 10ML SYG ONE (07:43)
[2017-11-23] MEDS ORDERED: DEXAMETHASONE SOD PHOSPHATE 10MG/ML 1ML VIAL ONE (07:48)
[2017-11-23] MEDS ORDERED: GLYCOPYRROLATE 0.2 MG/ML 5 ML VIAL ONE (07:48)
[2017-11-23] MEDS ORDERED: PROPOFOL 10 MG/ML 20ML VIAL IV ONE (07:48)
[2017-11-23] MEDS ORDERED: LIDOCAINE PF 2% 5ML ABBOJECT ONE (07:48)
[2017-11-23] MEDS ORDERED: MIDAZOLAM HCL 1 MG/ML 2ML VIAL ONE (07:48)
[2017-11-23] MEDS ORDERED: ONDANSETRON HCL 4 MG/2 ML VIAL ONE (07:48)
[2017-11-23] MEDS ORDERED: FENTANYL CITRATE PF 50 MCG/1 ML 2ML VIAL ONE (07:49)
[2017-11-23] MEDS: LINEZOLID 600 MG/ISO-OSM 300 ML IV SCH ×2 (08:00→21:33)
[2017-11-23] MEDS: FLUTICASONE PROPIONATE 50MCG/SPRAY 16 GM BOTTLE EN SCH (09:00)
[2017-11-23] MEDS: PREDNISONE 10 MG TABLET PO SCH (09:00)
[2017-11-23] MEDS: MULTIVITAMIN TABLET PO SCH (09:00)
[2017-11-23] MEDS: FISH OIL 1000 MG/CAP PO SCH (09:00)
[2017-11-23] MEDS: ENOXAPARIN SODIUM 40 MG/0.4 ML SYRINGE SQ SCH (09:00)
[2017-11-23] MEDS: FOLIC ACID/VITAMIN B COMP W-C 1 MG CAPSULE PO SCH (09:00)
[2017-11-23] MEDS: MYCOPHENOLATE MOFETIL 250 MG CAPSULE PO SCH (09:00)
[2017-11-23] MEDS: COLESEVELAM HCL 625 MG TAB PO SCH ×3 (09:00→21:34)
[2017-11-23] MEDS: METOPROLOL TARTRATE 50 MG TAB PO SCH ×2 (09:00→21:33)
[2017-11-23] MEDS: LORATADINE 10 MG TABLET PO SCH (09:00)
[2017-11-23] MEDS: DOCUSATE SODIUM 100 MG CAP PO SCH (09:00)
[2017-11-23] MEDS: CITALOPRAM 20 MG TABLET PO SCH (09:00)
[2017-11-23] MEDS: INSULIN GLARGINE 100 UNITS/ML 10 ML VIAL SQ SCH (13:43)
[2017-11-23] MEDS: FLUCONAZOLE 100 MG TAB PO SCH (21:34)
[2017-11-23] MEDS: TRAMADOL HCL 50 MG TABLET PO PRN (21:35)
[2017-11-24 00:23] VITALS: BP 126/85
[2017-11-24 03:49] VITALS: BP 132/77
[2017-11-24] MEDS: FUROSEMIDE 10 MG/ML 4ML VIAL IV SCH (03:52)
[2017-11-24] MEDS: ZOSYN 3.375GM+NS 50ML 50 ML IV SCH (03:52)
[2017-11-24] MEDS: BUDESONIDE 0.5 MG/2 ML INH IH SCH (05:49)
[2017-11-24] MEDS: IPRATROPIUM/ALBUTEROL SULFATE 3 ML SOLUTION IH SCH ×2 (05:49→11:01)
[2017-11-24] MEDS: INSULIN R PO SS1 SQ SCH ×2 (06:22→11:30)
[2017-11-24 07:00] VITALS: BP 105/55
[2017-11-24] MEDS: INSULIN GLARGINE 100 UNITS/ML 10 ML VIAL SQ SCH (07:30)
[2017-11-24 07:31] LABS: HEMATOCRIT 29.1 % (42-54); MEAN CORPUSCULAR HEMOGLOBIN 27.7 pg (27.0-33.0); MEAN CORPUSCULAR VOLUME 86.5 fL (79-99); NUCLEATED RED BLOOD CELLS 0.2 % (0.0-0.19); PLATELET COUNT (AUTO) 176 K/uL (130-400); RED BLOOD CELL COUNT(AUTO) 3.36 MIL/uL (4.50-6.20); RED CELL DISTRIBUTION WIDTH 16.5 % (11.0-15.5); WHITE BLOOD COUNT (AUTO) 16.6 K/uL (4.8-10.8)
[2017-11-24] MEDS: LINEZOLID 600 MG/ISO-OSM 300 ML IV SCH (08:00)
[2017-11-24 08:32] LABS: CREATININE 2.2 mg/dL (0.5-1.5)
[2017-11-24 08:37] LABS: POTASSIUM 2.8 mmol/L (3.5-5.1)
[2017-11-24] MEDS: FLUTICASONE PROPIONATE 50MCG/SPRAY 16 GM BOTTLE EN SCH (09:00)
[2017-11-24] MEDS: METOPROLOL TARTRATE 50 MG TAB PO SCH (09:00)
[2017-11-24] MEDS: ENOXAPARIN SODIUM 40 MG/0.4 ML SYRINGE SQ SCH (09:00)
[2017-11-24] MEDS: MYCOPHENOLATE MOFETIL 250 MG CAPSULE PO SCH (10:25)
[2017-11-24] MEDS: CYCLOSPORINE, MODIFIED 25 MG CAPSULE PO SCH (10:25)
[2017-11-24] MEDS: FISH OIL 1000 MG/CAP PO SCH (10:25)
[2017-11-24] MEDS: PREDNISONE 10 MG TABLET PO SCH (10:25)
[2017-11-24] MEDS: COLESEVELAM HCL 625 MG TAB PO SCH (10:25)
[2017-11-24] MEDS: PANTOPRAZOLE SODIUM 40 MG TABLET.DR PO SCH (10:26)
[2017-11-24] MEDS: DOCUSATE SODIUM 100 MG CAP PO SCH (10:26)
[2017-11-24] MEDS: CITALOPRAM 20 MG TABLET PO SCH (10:26)
[2017-11-24] MEDS: MULTIVITAMIN TABLET PO SCH (10:26)
[2017-11-24] MEDS: LORATADINE 10 MG TABLET PO SCH (10:26)
[2017-11-24] MEDS: FOLIC ACID/VITAMIN B COMP W-C 1 MG CAPSULE PO SCH (10:26)
[2017-11-24 11:19] VITALS: BP 114/79
[2017-11-24] MEDS: TRAMADOL HCL 50 MG TABLET PO PRN (11:32)
[2017-11-24] MEDS ORDERED: TRAM50TA4 PO (12:40)
== END 2017-11-24 14:17 | disposition home or self-care (01) | DRG 710 ==
LOC: EDH 11:41 → OBSVTOIN 11:42 → EDHIP 11:42 → 3AH 17:02
PROVIDERS: ADMIT Internal Medicine; ATTEND Internal Medicine
PROC: 0JH63XZ Insertion of Tunneled Vascular Access Device into Chest Subcutaneous Tissue and Fascia, Percutaneous Approach (ICD-10-PCS; 2017-11-15)
PROC: 02H633Z Insertion of Infusion Device into Right Atrium, Percutaneous Approach (ICD-10-PCS; 2017-11-15)
PROC: B244ZZZ Ultrasonography of Right Heart (ICD-10-PCS; 2017-11-15)
PROC: 5A1D70Z Performance of Urinary Filtration, Intermittent, Less than 6 Hours Per Day (ICD-10-PCS; 2017-11-16)
PROC: 5A1D70Z Performance of Urinary Filtration, Intermittent, Less than 6 Hours Per Day (ICD-10-PCS; 2017-11-17)
PROC: 5A1D70Z Performance of Urinary Filtration, Intermittent, Less than 6 Hours Per Day (ICD-10-PCS; 2017-11-20)
PROC: 5A1D70Z Performance of Urinary Filtration, Intermittent, Less than 6 Hours Per Day (ICD-10-PCS; 2017-11-21)
PROC: 041L0JS Bypass Left Femoral Artery to Lower Extremity Vein with Synthetic Substitute, Open Approach (ICD-10-PCS; principal; 2017-11-23 07:30)
PROC: 5A1D70Z Performance of Urinary Filtration, Intermittent, Less than 6 Hours Per Day (ICD-10-PCS; 2017-11-24)
DX: A41.9 Sepsis, unspecified organism (principal); J96.01 Acute respiratory failure with hypoxia; T86.11 Kidney transplant rejection; J18.9 Pneumonia, unspecified organism; E46 Unspecified protein-calorie malnutrition; N17.9 Acute kidney failure, unspecified; E87.2 Acidosis; T86.12 Kidney transplant failure; I12.0 Hypertensive chronic kidney disease with stage 5 chronic kidney disease or end stage renal disease; N18.6 End stage renal disease; E11.51 Type 2 diabetes mellitus with diabetic peripheral angiopathy without gangrene; E66.01 Morbid (severe) obesity due to excess calories; L03.115 Cellulitis of right lower limb; Y83.8 Other surgical procedures as the cause of abnormal reaction of the patient, or of later complication, without mention of misadventure at the time of the procedure; S81.811A Laceration without foreign body, right lower leg, initial encounter; J44.0 Chronic obstructive pulmonary disease with (acute) lower respiratory infection; Z94.0 Kidney transplant status; L03.119 Cellulitis of unspecified part of limb; D64.9 Anemia, unspecified; E11.22 Type 2 diabetes mellitus with diabetic chronic kidney disease; E78.5 Hyperlipidemia, unspecified; E87.70 Fluid overload, unspecified; G47.33 Obstructive sleep apnea (adult) (pediatric); Y95 Nosocomial condition; K40.20 Bilateral inguinal hernia, without obstruction or gangrene, not specified as recurrent; R62.50 Unspecified lack of expected normal physiological development in childhood; I25.10 Atherosclerotic heart disease of native coronary artery without angina pectoris; J96.21 Acute and chronic respiratory failure with hypoxia; J44.9 Chronic obstructive pulmonary disease, unspecified; T38.0X5A Adverse effect of glucocorticoids and synthetic analogues, initial encounter; Y83.0 Surgical operation with transplant of whole organ as the cause of abnormal reaction of the patient, or of later complication, without mention of misadventure at the time of the procedure; F79 Unspecified intellectual disabilities; D63.1 Anemia in chronic kidney disease; Q61.3 Polycystic kidney, unspecified; Z79.4 Long term (current) use of insulin; Z99.2 Dependence on renal dialysis; Q89.9 Congenital malformation, unspecified; Z88.1 Allergy status to other antibiotic agents; Z88.8 Allergy status to other drugs, medicaments and biological substances; Y92.89 Other specified places as the place of occurrence of the external cause; Z87.74 Personal history of (corrected) congenital malformations of heart and circulatory system; Z83.3 Family history of diabetes mellitus; Z82.49 Family history of ischemic heart disease and other diseases of the circulatory system; Z82.3 Family history of stroke; Z79.52 Long term (current) use of systemic steroids; Z79.899 Other long term (current) drug therapy; Z91.81 History of falling; Z68.23 Body mass index [BMI] 23.0-23.9, adult
CPT/HCPCS: 36415; 36558; 36600; 71045; 71046; 73562; 77001; 80048; 80053; 80061; 82040; 82565; 82728; 82803; 82947; 82948; 83036; 83540; 83550; 83605; 83735; 83880; 84100; 84132; 84520; 85014; 85018; 85025; 85027; 85378; 85610; 85730; 86701; 86704; 86706; 87040; 87340; 87390; 87520; 90935; 93005; 93970; 94640; 94664; 97039; 99291; C1750; J1100; J1644; J1650; J1815; J1940; J1956; J2001; J2020; J2250; J2405; J2543; J2704; J2920; J2930; J3010; J3475; J3490; J7030; J7040; J7070; J7512; J7515; J7517

== ENCOUNTER 2017-12-07 20:49 | Emergency (ER) | payer MEDICAID ==
[~2017-12-07 20:49] MED LIST changes: +AMLO2.5T PO; +CLONIDINE PATCH TD; +FURO40TA5 PO; +TRAM50TA4 PO
[2017-12-07 21:32] LABS: BASOPHILS % (AUTO) 1.5 % (0.0-5.0); EOSINOPHILS % (AUTO) 0.4 % (0.0-8.0); HEMATOCRIT 27.2 % (42-54); LYMPHOCYTES % (AUTO) 16.1 % (21.0-51.0); MEAN CORPUSCULAR HEMOGLOBIN 33.1 pg (27.0-33.0); MEAN CORPUSCULAR HGB CONC 35.2 g/dL (32.0-36.0); MEAN CORPUSCULAR VOLUME 94.1 fL (79-99); MONOCYTES % (AUTO) 9.8 % (3.0-13.0); NEUTROPHILS % (AUTO) 72.2 % (40.0-77.0); NUCLEATED RED BLOOD CELLS 1.2 % (0.0-0.19); PLATELET COUNT (AUTO) 169 K/uL (130-400); RED BLOOD CELL COUNT(AUTO) 2.88 MIL/uL (4.50-6.20); RED CELL DISTRIBUTION WIDTH 21.4 % (11.0-15.5); WHITE BLOOD COUNT (AUTO) 11.6 K/uL (4.8-10.8)
[2017-12-07 21:40] LABS: CREATININE 1.5 mg/dL (0.5-1.5); POTASSIUM 4.3 mmol/L (3.5-5.1)
[2017-12-07 21:43] LABS: INR 0.93 (0.85-1.15); PARTIAL THROMBOPLASTIN TIME 25.2 SEC (26.3-35.5); PROTHROMBIN TIME 9.8 SEC (9.6-11.6)
[2017-12-07 21:45] LABS: ALBUMIN 2.5 g/dL (3.5-5.0); BILIRUBIN,TOTAL 0.5 mg/dL (0.2-1.0); MAGNESIUM 1.9 mg/dL (1.80-2.40)
[2017-12-07 22:20] LABS: BASOPHILS % (AUTO) 0.7 % (0.0-5.0); EOSINOPHILS % (AUTO) 0.5 % (0.0-8.0); HEMATOCRIT 26.3 % (42-54); MEAN CORPUSCULAR HEMOGLOBIN 34.3 pg (27.0-33.0); MEAN CORPUSCULAR HGB CONC 36.8 g/dL (32.0-36.0); MEAN CORPUSCULAR VOLUME 93.3 fL (79-99); MONOCYTES % (AUTO) 10.7 % (3.0-13.0); NEUTROPHILS % (AUTO) 72.1 % (40.0-77.0); NUCLEATED RED BLOOD CELLS 1.8 % (0.0-0.19); PLATELET COUNT (AUTO) 157 K/uL (130-400); RED BLOOD CELL COUNT(AUTO) 2.82 MIL/uL (4.50-6.20); RED CELL DISTRIBUTION WIDTH 21.2 % (11.0-15.5); WHITE BLOOD COUNT (AUTO) 10.7 K/uL (4.8-10.8)
[2017-12-07 22:46] LABS: TOTAL PROTEIN, SERUM 5.2 g/dL (6.0-8.3)
[2017-12-07 22:47] LABS: CREATININE 1.5 mg/dL (0.5-1.5); POTASSIUM 3.7 mmol/L (3.5-5.1)
== END 2017-12-07 23:28 | disposition home or self-care (01) ==
LOC: EDH 20:49
DX: D64.9 Anemia, unspecified (principal); R79.1 Abnormal coagulation profile; I10 Essential (primary) hypertension; E78.5 Hyperlipidemia, unspecified; E11.9 Type 2 diabetes mellitus without complications; J44.9 Chronic obstructive pulmonary disease, unspecified; Z94.0 Kidney transplant status; Z88.1 Allergy status to other antibiotic agents; Z88.8 Allergy status to other drugs, medicaments and biological substances
CPT/HCPCS: 36415; 80048; 80053; 83735; 85025; 85610; 85730; 86850; 86900; 86901

== ENCOUNTER 2022-03-23 12:25 | Inpatient (IN) | payer MEDICAID ==
[~2022-03-23] VITALS: Ht 137.2 cm; Wt 58.2 kg
[~2022-03-23 12:25] MED LIST changes: -AMLO2.5T PO; +AMLO2.5T4 PO; -COLE625 PO; +COLE625T30 PO; +DOCU-282 PO; -DOCU100C19 PO; +FLUC200T12 PO; -FLUC200T8 PO
[2022-03-23 14:25] LABS: BASOPHILS % (AUTO) 0.7 % (0.0-5.0); EOSINOPHILS % (AUTO) 1.1 % (0.0-8.0); HEMATOCRIT 39.4 % (42-54); LYMPHOCYTES % (AUTO) 22.6 % (21.0-51.0); MEAN CORPUSCULAR HGB CONC 33.2 g/dL (32.0-36.0); MEAN CORPUSCULAR VOLUME 96.1 fL (79-99); MONOCYTES % (AUTO) 7.6 % (3.0-13.0); NEUTROPHILS % (AUTO) 67.5 % (40.0-77.0); PLATELET COUNT (AUTO) 217 K/uL (130-400); RED CELL DISTRIBUTION WIDTH 14.1 % (11.0-15.5)
[2022-03-23] MEDS ORDERED: ACETAMINOPHEN 325 MG TAB PO ONE (14:30)
[2022-03-23 14:47] LABS: ALBUMIN 4.2 g/dL (3.5-5.0); POTASSIUM 3.8 mmol/L (3.5-5.1); TOTAL PROTEIN, SERUM 8.2 g/dL (6.0-8.3); URIC ACID 6.3 mg/dL (2.6-7.2)
[2022-03-23 14:51] LABS: CREATININE 9.7 mg/dL (0.5-1.5)
[2022-03-23] MEDS ORDERED: ACETAMINOPHEN 325 MG TAB PO PRN (17:00)
[2022-03-24] VITALS (18 sets, daily range): BP systolic 89–139; BP diastolic 55–86
[2022-03-24] MEDS ORDERED: CEFTRIAXONE 1G VIAL ONE (07:02)
[2022-03-24] MEDS: CEFTRIAXONE 1G VIAL IVP SCH (07:05)
[2022-03-24 07:33] LABS: HEMATOCRIT 38.3 % (42-54); MEAN CORPUSCULAR HEMOGLOBIN 32.2 pg (27.0-33.0); MEAN CORPUSCULAR HGB CONC 33.4 g/dL (32.0-36.0); MEAN CORPUSCULAR VOLUME 96.5 fL (79-99); PLATELET COUNT (AUTO) 224 K/uL (130-400); RED BLOOD CELL COUNT(AUTO) 3.97 MIL/uL (4.50-6.20); RED CELL DISTRIBUTION WIDTH 14.5 % (11.0-15.5); WHITE BLOOD COUNT (AUTO) 15.3 K/uL (4.8-10.8)
[2022-03-24 07:42] LABS: MAGNESIUM 2.5 mg/dL (1.80-2.40); PHOSPHORUS 8.3 mg/dL (2.5-4.9); POTASSIUM 4.4 mmol/L (3.5-5.1)
[2022-03-24] MEDS ORDERED: DEXTROSE 50%-WATER 50 ML DISP.SYRIN IV ONE (07:51)
[2022-03-24] MEDS ORDERED: VANCOMYCIN PROTOCOL PER PHARMACY IV SCH ×2 (08:00→08:30)
[2022-03-24] MEDS ORDERED: GLUCAGON 1MG KIT 1 MG ML IM PRN (08:00)
[2022-03-24 08:01] LABS: CREATININE 12.2 mg/dL (0.5-1.5)
[2022-03-24 08:48] LABS: BASOPHILS % (MANUAL) 1 % (0-2); LYMPHOCYTES % (MANUAL) 27 % (22-44); MONOCYTES % (MANUAL) 6 % (2-9); SEGMENTED NEUTROPHILS % 66 % (40-70)
[2022-03-24 08:49] LABS: MAN.DIFF COMMENT-IMPRESSION MANUAL DIFFERENTIAL; PLATELET MORPHOLOGY COMMENT ADEQUATE
[2022-03-24] MEDS: DEXTROSE 50%-WATER 50 ML DISP.SYRIN IV PRN ×2 (13:12→23:40)
[2022-03-24] MEDS: LINEZOLID 600 MG/ISO-OSM 300 ML IV SCH (13:23)
[2022-03-25 00:08] VITALS: BP 113/72
[2022-03-25] MEDS: LINEZOLID 600 MG/ISO-OSM 300 ML IV SCH ×2 (02:06→12:18)
[2022-03-25 04:03] VITALS: BP 147/83
[2022-03-25 07:30] VITALS: BP 90/61
[2022-03-25 08:50] LABS: HEMATOCRIT 44.6 % (42-54); MEAN CORPUSCULAR HEMOGLOBIN 32.1 pg (27.0-33.0); MEAN CORPUSCULAR HGB CONC 33.4 g/dL (32.0-36.0); MEAN CORPUSCULAR VOLUME 96.1 fL (79-99); PLATELET COUNT (AUTO) 179 K/uL (130-400); RED BLOOD CELL COUNT(AUTO) 4.64 MIL/uL (4.50-6.20); RED CELL DISTRIBUTION WIDTH 14.4 % (11.0-15.5); WHITE BLOOD COUNT (AUTO) 12.9 K/uL (4.8-10.8)
[2022-03-25] MEDS: CEFTRIAXONE 1G VIAL IVP SCH (08:55)
[2022-03-25 09:43] LABS: POTASSIUM 3.4 mmol/L (3.5-5.1); TOTAL PROTEIN, SERUM 8.1 g/dL (6.0-8.3)
[2022-03-25 09:56] LABS: CREATININE 8.9 mg/dL (0.5-1.5)
[2022-03-25 11:00] VITALS: BP 99/27
[2022-03-25 11:24] LABS: BASOPHILS % (MANUAL) 3 % (0-2); EOSINOPHILS % (MANUAL) 4 % (1-6); LYMPHOCYTES % (MANUAL) 51 % (22-44); MAN.DIFF COMMENT-IMPRESSION MANUAL DIFFERENTIAL; MONOCYTES % (MANUAL) 9 % (2-9); PLATELET MORPHOLOGY COMMENT ADEQUATE; SEGMENTED NEUTROPHILS % 33 % (40-70)
[2022-03-25 16:00] VITALS: BP 125/61
[2022-03-25 20:00] VITALS: BP 91/59
[2022-03-26] VITALS (22 sets, daily range): BP systolic 77–107; BP diastolic 40–70
[2022-03-26] MEDS: LINEZOLID 600 MG/ISO-OSM 300 ML IV SCH ×2 (00:15→12:02)
[2022-03-26 04:19] LABS: MEAN CORPUSCULAR HEMOGLOBIN 32.7 pg (27.0-33.0); MEAN CORPUSCULAR HGB CONC 33.5 g/dL (32.0-36.0); MEAN CORPUSCULAR VOLUME 97.6 fL (79-99); PLATELET COUNT (AUTO) 149 K/uL (130-400); RED CELL DISTRIBUTION WIDTH 14.2 % (11.0-15.5); WHITE BLOOD COUNT (AUTO) 9.9 K/uL (4.8-10.8)
[2022-03-26 04:37] LABS: MAGNESIUM 2.3 mg/dL (1.80-2.40); PHOSPHORUS 8.9 mg/dL (2.5-4.9); POTASSIUM 3.1 mmol/L (3.5-5.1)
[2022-03-26 04:44] LABS: CREATININE 11.3 mg/dL (0.5-1.5)
[2022-03-26 05:26] LABS: BAND NEUTROPHILS % (MANUAL) 1 % (0-2); EOSINOPHILS % (MANUAL) 5 % (1-6); LYMPHOCYTES % (MANUAL) 36 % (22-44); MAN.DIFF COMMENT-IMPRESSION MANUAL DIFFERENTIAL; MONOCYTES % (MANUAL) 4 % (2-9); PLATELET MORPHOLOGY COMMENT ADEQUATE; SEGMENTED NEUTROPHILS % 54 % (40-70)
[2022-03-26] MEDS: CEFTRIAXONE 1G VIAL IVP SCH (08:52)
[2022-03-26] MEDS ORDERED: ALBUMIN (HUMAN) 25% 100 ML IV ONE (15:00)
[2022-03-26] MEDS ORDERED: PHARMACY COMMUNICATION MISC SCH (18:00)
[2022-03-26] MEDS ORDERED: ALBUMIN (HUMAN) 25% 100 ML IV PRN (18:00)
[2022-03-26] MEDS ORDERED: LIDOCAINE HCL-MPF 1% 2ML VIAL IV PRN (19:30)
[2022-03-26] MEDS ORDERED: POTASSIUM CHLORIDE 10MEQ/100ML 100 ML IV PRN (19:30)
[2022-03-26] MEDS ORDERED: POTASSIUM CHLORIDE 10% ELIXIR 20 MEQ/15 ML UDCUP PO PRN (19:30)
[2022-03-26] MEDS ORDERED: KCL 20 MEQ ERTAB PO PRN (19:30)
[2022-03-26 21:04] LABS: HEPATITIS B SURFACE ANTIGEN Non-Reactive (Nonreactive)
[2022-03-27] MEDS: LINEZOLID 600 MG/ISO-OSM 300 ML IV SCH ×2 (03:41→13:00)
[2022-03-27 03:43] VITALS: BP 151/92
[2022-03-27 04:19] LABS: HEMATOCRIT 28.9 % (42-54); MEAN CORPUSCULAR HEMOGLOBIN 32.3 pg (27.0-33.0); MEAN CORPUSCULAR HGB CONC 30.1 g/dL (32.0-36.0); MEAN CORPUSCULAR VOLUME 107.4 fL (79-99); PLATELET COUNT (AUTO) 104 K/uL (130-400); RED BLOOD CELL COUNT(AUTO) 2.69 MIL/uL (4.50-6.20); RED CELL DISTRIBUTION WIDTH 14.8 % (11.0-15.5); WHITE BLOOD COUNT (AUTO) 7.2 K/uL (4.8-10.8)
[2022-03-27 06:41] LABS: BASOPHILS % (MANUAL) 1 % (0-2); LYMPHOCYTES % (MANUAL) 30 % (22-44); MAN.DIFF COMMENT-IMPRESSION MANUAL DIFFERENTIAL; MONOCYTES % (MANUAL) 7 % (2-9); PLATELET MORPHOLOGY COMMENT ADEQUATE; SEGMENTED NEUTROPHILS % 62 % (40-70)
[2022-03-27 07:10] LABS: MAGNESIUM 1.9 mg/dL (1.80-2.40); PHOSPHORUS 7.2 mg/dL (2.5-4.9); POTASSIUM 3.1 mmol/L (3.5-5.1)
[2022-03-27 07:14] LABS: CREATININE 9.4 mg/dL (0.5-1.5)
[2022-03-27 08:00] VITALS: BP 95/60
[2022-03-27] MEDS: CEFTRIAXONE 1G VIAL IVP SCH (08:21)
[2022-03-27 12:00] VITALS: BP 98/64
[2022-03-27] MEDS ORDERED: KCL 20 MEQ ERTAB PO SCH (12:00)
[2022-03-27] MEDS ORDERED: OMEP40CA21 PO (13:25)
[2022-03-27] MEDS ORDERED: VITAMIN D (13:25)
[2022-03-27] MEDS ORDERED: CITA-107 PO (13:25)
[2022-03-27] MEDS ORDERED: BUDE10.22 IH (13:25)
[2022-03-27] MEDS ORDERED: TRAJENTA (13:25)
[2022-03-27] MEDS ORDERED: METO25TA6 PO (13:25)
[2022-03-27] MEDS ORDERED: SEVE800 PO (13:25)
[2022-03-27] MEDS ORDERED: FOLI0.8T22 PO (13:25)
[2022-03-27] MEDS ORDERED: PRED5TAB PO (13:25)
[2022-03-27] MEDS ORDERED: DOCU-116 PO (13:25)
[2022-03-27] MEDS ORDERED: CALC667C10 PO (13:25)
[2022-03-27] MEDS ORDERED: HYDR-3421 PO (13:25)
[2022-03-27 15:57] VITALS: BP 115/59
== END 2022-03-27 17:15 | disposition home or self-care (01) | DRG 720 ==
LOC: EDH 12:25 → EDHIP 12:26 → 4CH 03-24 14:30
PROVIDERS: ADMIT Internal Medicine; ATTEND Internal Medicine
PROC: 5A1D70Z Performance of Urinary Filtration, Intermittent, Less than 6 Hours Per Day (ICD-10-PCS; principal; 2022-03-23)
PROC: 5A1D70Z Performance of Urinary Filtration, Intermittent, Less than 6 Hours Per Day (ICD-10-PCS; 2022-03-24)
PROC: 5A1D70Z Performance of Urinary Filtration, Intermittent, Less than 6 Hours Per Day (ICD-10-PCS; 2022-03-26)
DX: A41.9 Sepsis, unspecified organism (principal); T86.12 Kidney transplant failure; I12.0 Hypertensive chronic kidney disease with stage 5 chronic kidney disease or end stage renal disease; D84.821 Immunodeficiency due to drugs; E11.649 Type 2 diabetes mellitus with hypoglycemia without coma; J44.1 Chronic obstructive pulmonary disease with (acute) exacerbation; E11.22 Type 2 diabetes mellitus with diabetic chronic kidney disease; D64.9 Anemia, unspecified; E78.5 Hyperlipidemia, unspecified; N18.6 End stage renal disease; E87.70 Fluid overload, unspecified; Y83.0 Surgical operation with transplant of whole organ as the cause of abnormal reaction of the patient, or of later complication, without mention of misadventure at the time of the procedure; Z68.31 Body mass index [BMI] 31.0-31.9, adult; Z99.2 Dependence on renal dialysis; Z79.60 Long term (current) use of unspecified immunomodulators and immunosuppressants
CPT/HCPCS: 36415; 71045; 73600; 73630; 80048; 80053; 82948; 83605; 83735; 84100; 84550; 85025; 86704; 86706; 87040; 87340; 90935; G0378; J0696; J2020; J7070; P9046

== ENCOUNTER 2022-05-01 12:08 | Inpatient (IN) | payer MEDICAID ==
[~2022-05-01] VITALS: Ht 152.4 cm; Wt 61.7 kg
[~2022-05-01 12:08] MED LIST changes: -ACET-1952 PO; -AMLO2.5T4 PO; -BUDE10.2 IH; +BUDE10.22 IH; +CALC667C10 PO; -CLONIDINE PATCH TD; -COLE625T30 PO; -CYCL25CA3 PO; +DOCU-116 PO; -DOCU-282 PO; -ESOM40CA PO; -FISH1CAP50 PO; -FLUC200T12 PO; -FLUT16H EN; +FOLI0.8T22 PO; -FURO20TA6 PO; -FURO40TA5 PO; +HYDR-3421 PO; -INSU100I15 SQ; -LINA5TAB PO; -LORA10TA7 PO; -METO25TA3 PO; -MULT-413 PO; -MYCO500T PO; +OMEP40CA21 PO; -ONDA4TAB10 PO; -OXYGEN NASAL; -PRED2.5T PO; +PRED5TAB PO; -PROCTOCM PR; +SEVE800 PO; -TRAM50TA4 PO; +VITAMIN D
[2022-05-01] MEDS ORDERED: DIPHENHYDRAMINE HCL 25 MG CAPSULE PO PRN (12:30)
[2022-05-01] MEDS ORDERED: ACETAMINOPHEN 325 MG TAB PO PRN (12:30)
[2022-05-01] MEDS ORDERED: KCL 20 MEQ ERTAB PO PRN (12:30)
[2022-05-01] MEDS ORDERED: LIDOCAINE HCL-MPF 1% 2ML VIAL IV PRN (12:30)
[2022-05-01] MEDS ORDERED: POTASSIUM CHLORIDE 10% ELIXIR 20 MEQ/15 ML UDCUP PO PRN (12:30)
[2022-05-01] MEDS ORDERED: POTASSIUM CHLORIDE 10MEQ/100ML 100 ML IV PRN (12:30)
[2022-05-01 13:55] LABS: BASOPHILS % (AUTO) 1.2 % (0.0-5.0); EOSINOPHILS % (AUTO) 1.5 % (0.0-8.0); LYMPHOCYTES % (AUTO) 16.7 % (21.0-51.0); MEAN CORPUSCULAR HEMOGLOBIN 32.4 pg (27.0-33.0); MEAN CORPUSCULAR HGB CONC 31.3 g/dL (32.0-36.0); MEAN CORPUSCULAR VOLUME 103.6 fL (79-99); MONOCYTES % (AUTO) 10.6 % (3.0-13.0); NEUTROPHILS % (AUTO) 69.5 % (40.0-77.0); PLATELET COUNT (AUTO) 194 K/uL (130-400); RED BLOOD CELL COUNT(AUTO) 3.09 MIL/uL (4.50-6.20); RED CELL DISTRIBUTION WIDTH 16.4 % (11.0-15.5); WHITE BLOOD COUNT (AUTO) 10.4 K/uL (4.8-10.8)
[2022-05-01 14:03] LABS: CREATININE 5.3 mg/dL (0.5-1.5); POTASSIUM 3.8 mmol/L (3.5-5.1)
[2022-05-01 14:07] LABS: ALBUMIN 3.6 g/dL (3.5-5.0); BILIRUBIN,DIRECT 0.1 mg/dL (0.0-0.3); TOTAL PROTEIN, SERUM 7.2 g/dL (6.0-8.3)
[2022-05-01] MEDS: ZOSYN 3.375GM +NS 50ML IV SCH (15:02)
[2022-05-01 16:00] VITALS: BP 112/66
[2022-05-01] MEDS ORDERED: CHOL100046 PO (17:16)
[2022-05-01] MEDS ORDERED: SODIUM CHLORIDE 3% FOR INHALATION 4 ML/AMP VIAL.NEB IH ONE ×2 (18:16→23:46)
[2022-05-01] MEDS: IPRATROPIUM/ALBUTEROL SULFATE 3 ML SOLUTION IH SCH ×2 (18:18→23:30)
[2022-05-01 19:47] VITALS: BP 118/67
[2022-05-01] MEDS: SOLU-MEDROL 125MG VIAL IVP SCH (20:37)
[2022-05-01 23:58] VITALS: BP 135/78
[2022-05-02] VITALS (21 sets, daily range): BP systolic 107–144; BP diastolic 63–84
[2022-05-02] MEDS: ZOSYN 3.375GM +NS 50ML IV SCH ×3 (00:19→23:58)
[2022-05-02 05:01] LABS: BASOPHILS % (AUTO) 0.3 % (0.0-5.0); HEMATOCRIT 33.1 % (42-54); LYMPHOCYTES % (AUTO) 5.7 % (21.0-51.0); MEAN CORPUSCULAR HEMOGLOBIN 32.6 pg (27.0-33.0); MEAN CORPUSCULAR HGB CONC 31.7 g/dL (32.0-36.0); MEAN CORPUSCULAR VOLUME 102.8 fL (79-99); MONOCYTES % (AUTO) 1.4 % (3.0-13.0); NEUTROPHILS % (AUTO) 91.8 % (40.0-77.0); PLATELET COUNT (AUTO) 211 K/uL (130-400); RED BLOOD CELL COUNT(AUTO) 3.22 MIL/uL (4.50-6.20); RED CELL DISTRIBUTION WIDTH 16.1 % (11.0-15.5); WHITE BLOOD COUNT (AUTO) 10.7 K/uL (4.8-10.8)
[2022-05-02 05:18] LABS: CREATININE 6.8 mg/dL (0.5-1.5); POTASSIUM 4.8 mmol/L (3.5-5.1)
[2022-05-02] MEDS ORDERED: SODIUM CHLORIDE 3% FOR INHALATION 4 ML/AMP VIAL.NEB IH ONE (06:17)
[2022-05-02] MEDS: IPRATROPIUM/ALBUTEROL SULFATE 3 ML SOLUTION IH SCH ×4 (07:02→23:02)
[2022-05-02] MEDS: SOLU-MEDROL 125MG VIAL IVP SCH ×2 (09:18→20:07)
[2022-05-02] MEDS ORDERED: LIDOCAINE HCL 2% JELLY 5 ML TP STA (12:10)
[2022-05-02] MEDS: LIDOCAINE HCL 2% JELLY 5 ML TP SCH (12:48)
[2022-05-02] MEDS: GUAIFENESIN-DM 200/20 MG 10 ML PO PRN ×2 (13:51→22:06)
[2022-05-02] MEDS: NEOMY SULF/BACITRAC ZN/POLY OINT 30GM TUBE TP SCH ×2 (20:07→21:00)
[2022-05-03 03:52] VITALS: BP 113/77
[2022-05-03 06:06] LABS: HEMATOCRIT 30.9 % (42-54); MEAN CORPUSCULAR HEMOGLOBIN 32.4 pg (27.0-33.0); MEAN CORPUSCULAR HGB CONC 32.4 g/dL (32.0-36.0); RED BLOOD CELL COUNT(AUTO) 3.09 MIL/uL (4.50-6.20); RED CELL DISTRIBUTION WIDTH 15.7 % (11.0-15.5); WHITE BLOOD COUNT (AUTO) 12.9 K/uL (4.8-10.8)
[2022-05-03 06:25] LABS: POTASSIUM 3.8 mmol/L (3.5-5.1)
[2022-05-03 06:26] LABS: CREATININE 5.3 mg/dL (0.5-1.5); MAGNESIUM 2.1 mg/dL (1.80-2.40); PHOSPHORUS 4.3 mg/dL (2.5-4.9)
[2022-05-03] MEDS ORDERED: SODIUM CHLORIDE 3% FOR INHALATION 4 ML/AMP VIAL.NEB IH ONE ×2 (06:29→11:19)
[2022-05-03 06:39] LABS: HEPATITIS B SURFACE ANTIGEN Non-Reactive (Nonreactive)
[2022-05-03] MEDS: IPRATROPIUM/ALBUTEROL SULFATE 3 ML SOLUTION IH SCH ×4 (06:39→23:12)
[2022-05-03 07:25] VITALS: BP 107/63
[2022-05-03] MEDS: SOLU-MEDROL 125MG VIAL IVP SCH ×2 (09:20→21:35)
[2022-05-03] MEDS: NEOMY SULF/BACITRAC ZN/POLY OINT 30GM TUBE TP SCH ×3 (09:21→21:36)
[2022-05-03] MEDS: GUAIFENESIN-DM 200/20 MG 10 ML PO PRN (09:21)
[2022-05-03 11:25] VITALS: BP 129/69
[2022-05-03] MEDS ORDERED: DOCUSATE SODIUM 100 MG CAP PO PRN (11:30)
[2022-05-03] MEDS ORDERED: SEVELAMER HCL 800 MG TABLET PO PRN (11:30)
[2022-05-03] MEDS: ACETYLCYSTEINE 20% 200MG/ML 4ML VIAL IH SCH ×3 (11:32→23:12)
[2022-05-03] MEDS: MEROPENEM 500 MG VIAL IVP SCH ×2 (11:46→23:25)
[2022-05-03] MEDS: CALCIUM AC 667MG CAP PO SCH ×2 (12:10→18:16)
[2022-05-03] MEDS: LIDOCAINE HCL 2% JELLY 5 ML TP SCH (12:30)
[2022-05-03] MEDS: ZOSYN 3.375GM +NS 50ML IV SCH (13:10)
[2022-05-03] MEDS ORDERED: DIPHENHYDRAMINE 2% CREAM 30 GM TP PRN (13:30)
[2022-05-03] MEDS ORDERED: AMMONIUM LACTATE 226GM LOTION TP PRN (14:00)
[2022-05-03 15:25] VITALS: BP 144/91
[2022-05-03] MEDS ORDERED: BUDESONIDE 0.5 MG/2 ML INH IH PRN (18:00)
[2022-05-03 19:55] VITALS: BP 130/68
[2022-05-03] MEDS: HYDROXYZINE 25 MG TABLET PO SCH (21:35)
[2022-05-03 23:30] VITALS: BP 122/79
[2022-05-04] MEDS: ZOSYN 3.375GM +NS 50ML IV SCH ×2 (00:52→11:25)
[2022-05-04 03:43] VITALS: BP 135/88
[2022-05-04 05:42] LABS: HEMATOCRIT 31.2 % (42-54); MEAN CORPUSCULAR HEMOGLOBIN 32.4 pg (27.0-33.0); MEAN CORPUSCULAR HGB CONC 32.1 g/dL (32.0-36.0); PLATELET COUNT (AUTO) 174 K/uL (130-400); RED BLOOD CELL COUNT(AUTO) 3.09 MIL/uL (4.50-6.20); RED CELL DISTRIBUTION WIDTH 15.8 % (11.0-15.5); WHITE BLOOD COUNT (AUTO) 13.8 K/uL (4.8-10.8)
[2022-05-04 05:58] LABS: ALBUMIN 3.2 g/dL (3.5-5.0); MAGNESIUM 2.5 mg/dL (1.80-2.40); PHOSPHORUS 6.5 mg/dL (2.5-4.9); POTASSIUM 4.3 mmol/L (3.5-5.1); TOTAL PROTEIN, SERUM 6.9 g/dL (6.0-8.3)
[2022-05-04 05:59] LABS: CREATININE 7.9 mg/dL (0.5-1.5)
[2022-05-04 06:01] LABS: BAND NEUTROPHILS % (MANUAL) 1 % (0-2); LYMPHOCYTES % (MANUAL) 3 % (22-44); MAN.DIFF COMMENT-IMPRESSION MANUAL DIFFERENTIAL; MONOCYTES % (MANUAL) 2 % (2-9); PLATELET MORPHOLOGY COMMENT ADEQUATE; SEGMENTED NEUTROPHILS % 94 % (40-70)
[2022-05-04] MEDS: IPRATROPIUM/ALBUTEROL SULFATE 3 ML SOLUTION IH SCH ×4 (07:05→23:16)
[2022-05-04] MEDS: ACETYLCYSTEINE 20% 200MG/ML 4ML VIAL IH SCH ×4 (07:06→23:16)
[2022-05-04 08:00] VITALS: BP 102/58
[2022-05-04] MEDS: HYDROXYZINE 25 MG TABLET PO SCH ×2 (08:25→21:36)
[2022-05-04] MEDS: CALCIUM AC 667MG CAP PO SCH ×3 (08:25→16:36)
[2022-05-04] MEDS: Vitamin B Complex/Vit C/Folic Acid PO SCH (08:25)
[2022-05-04] MEDS: PANTOPRAZOLE 40 MG TAB DR PO SCH (08:26)
[2022-05-04] MEDS: CITALOPRAM 20 MG TABLET PO SCH (08:26)
[2022-05-04] MEDS: SOLU-MEDROL 125MG VIAL IVP SCH ×2 (08:27→21:36)
[2022-05-04] MEDS: NEOMY SULF/BACITRAC ZN/POLY OINT 30GM TUBE TP SCH ×3 (08:27→21:37)
[2022-05-04] MEDS: **HM** VIT D3 25MCG PO SCH (08:42)
[2022-05-04] MEDS ORDERED: PREDNISONE 5 MG TABLET PO SCH (09:00)
[2022-05-04] MEDS: MEROPENEM 500 MG VIAL IVP SCH ×2 (10:03→23:06)
[2022-05-04] MEDS: LIDOCAINE HCL 2% JELLY 5 ML TP SCH (11:26)
[2022-05-04 11:46] VITALS: BP 141/70
[2022-05-04 15:25] VITALS: BP 157/83
[2022-05-04 20:00] VITALS: BP 121/70
[2022-05-04] MEDS: GUAIFENESIN-DM 200/20 MG 10 ML PO PRN (21:45)
[2022-05-04 23:56] VITALS: BP 146/79
[2022-05-05] VITALS (20 sets, daily range): BP systolic 111–167; BP diastolic 60–97
[2022-05-05 05:17] LABS: HEMATOCRIT 32.7 % (42-54); MEAN CORPUSCULAR HEMOGLOBIN 31.9 pg (27.0-33.0); MEAN CORPUSCULAR HGB CONC 32.4 g/dL (32.0-36.0); MEAN CORPUSCULAR VOLUME 98.5 fL (79-99); PLATELET COUNT (AUTO) 212 K/uL (130-400); RED BLOOD CELL COUNT(AUTO) 3.32 MIL/uL (4.50-6.20); RED CELL DISTRIBUTION WIDTH 15.4 % (11.0-15.5); WHITE BLOOD COUNT (AUTO) 17.3 K/uL (4.8-10.8)
[2022-05-05 05:37] LABS: ALBUMIN 3.6 g/dL (3.5-5.0); PHOSPHORUS 7.2 mg/dL (2.5-4.9); TOTAL PROTEIN, SERUM 7.6 g/dL (6.0-8.3)
[2022-05-05 05:46] LABS: CREATININE 9.7 mg/dL (0.5-1.5)
[2022-05-05 06:00] LABS: LYMPHOCYTES % (MANUAL) 6 % (22-44); MONOCYTES % (MANUAL) 5 % (2-9); SEGMENTED NEUTROPHILS % 89 % (40-70)
[2022-05-05 06:01] LABS: MAN.DIFF COMMENT-IMPRESSION MANUAL DIFFERENTIAL; PLATELET MORPHOLOGY COMMENT ADEQUATE
[2022-05-05] MEDS: ACETYLCYSTEINE 20% 200MG/ML 4ML VIAL IH SCH ×4 (06:13→23:01)
[2022-05-05] MEDS: IPRATROPIUM/ALBUTEROL SULFATE 3 ML SOLUTION IH SCH ×4 (06:13→23:01)
[2022-05-05] MEDS ORDERED: LIDOCAINE HCL 2% JELLY 5 ML TP PRN (08:00)
[2022-05-05] MEDS: SOLU-MEDROL 125MG VIAL IVP SCH ×2 (08:53→21:03)
[2022-05-05] MEDS: HYDROXYZINE 25 MG TABLET PO SCH ×2 (08:53→21:04)
[2022-05-05] MEDS: CALCIUM AC 667MG CAP PO SCH ×3 (08:53→17:20)
[2022-05-05] MEDS: Vitamin B Complex/Vit C/Folic Acid PO SCH (08:53)
[2022-05-05] MEDS: CITALOPRAM 20 MG TABLET PO SCH (08:53)
[2022-05-05] MEDS: PANTOPRAZOLE 40 MG TAB DR PO SCH (08:53)
[2022-05-05] MEDS: **HM** VIT D3 25MCG PO SCH (08:59)
[2022-05-05] MEDS: NEOMY SULF/BACITRAC ZN/POLY OINT 30GM TUBE TP SCH ×3 (09:00→21:04)
[2022-05-05] MEDS: LIDOCAINE HCL 2% JELLY 5 ML TP SCH (11:54)
[2022-05-05] MEDS: MEROPENEM 500 MG VIAL IVP SCH ×2 (11:54→22:59)
[2022-05-05] MEDS: LINEZOLID 600 MG/ISO-OSM 300 ML IV SCH (15:14)
[2022-05-05] MEDS: GUAIFENESIN-DM 200/20 MG 10 ML PO PRN (17:56)
[2022-05-05] MEDS: EPOETIN ALFA-EPBX (NON-ESRD) 10,000 UNIT/ML VIAL SQ SCH (18:23)
[2022-05-06] MEDS: LINEZOLID 600 MG/ISO-OSM 300 ML IV SCH ×2 (02:57→16:13)
[2022-05-06 03:44] VITALS: BP 119/71
[2022-05-06 04:52] LABS: HEMATOCRIT 30.8 % (42-54); MEAN CORPUSCULAR HEMOGLOBIN 32.5 pg (27.0-33.0); MEAN CORPUSCULAR HGB CONC 33.8 g/dL (32.0-36.0); MEAN CORPUSCULAR VOLUME 96.3 fL (79-99); NUCLEATED RED BLOOD CELLS 0.1 % (0.0-0.19); PLATELET COUNT (AUTO) 181 K/uL (130-400); RED CELL DISTRIBUTION WIDTH 14.8 % (11.0-15.5); WHITE BLOOD COUNT (AUTO) 18.5 K/uL (4.8-10.8)
[2022-05-06 05:15] LABS: ALBUMIN 3.3 g/dL (3.5-5.0); CREATININE 6.7 mg/dL (0.5-1.5); MAGNESIUM 2.1 mg/dL (1.80-2.40); POTASSIUM 3.7 mmol/L (3.5-5.1); TOTAL PROTEIN, SERUM 6.9 g/dL (6.0-8.3)
[2022-05-06] MEDS: GUAIFENESIN-DM 200/20 MG 10 ML PO PRN (05:31)
[2022-05-06 05:36] LABS: BAND NEUTROPHILS % (MANUAL) 1 % (0-2); LYMPHOCYTES % (MANUAL) 4 % (22-44); MAN.DIFF COMMENT-IMPRESSION MANUAL DIFFERENTIAL; MONOCYTES % (MANUAL) 11 % (2-9); PLATELET MORPHOLOGY COMMENT ADEQUATE; SEGMENTED NEUTROPHILS % 84 % (40-70)
[2022-05-06] MEDS: ACETYLCYSTEINE 20% 200MG/ML 4ML VIAL IH SCH ×4 (06:39→23:26)
[2022-05-06] MEDS: IPRATROPIUM/ALBUTEROL SULFATE 3 ML SOLUTION IH SCH ×4 (06:39→23:26)
[2022-05-06 08:00] VITALS: BP 133/80
[2022-05-06] MEDS: **HM** VIT D3 25MCG PO SCH (09:00)
[2022-05-06] MEDS: CITALOPRAM 20 MG TABLET PO SCH (09:24)
[2022-05-06] MEDS: CALCIUM AC 667MG CAP PO SCH ×3 (09:24→16:17)
[2022-05-06] MEDS: PANTOPRAZOLE 40 MG TAB DR PO SCH (09:24)
[2022-05-06] MEDS: HYDROXYZINE 25 MG TABLET PO SCH ×2 (09:24→20:05)
[2022-05-06] MEDS: Vitamin B Complex/Vit C/Folic Acid PO SCH (09:24)
[2022-05-06] MEDS: SOLU-MEDROL 125MG VIAL IVP SCH ×2 (09:25→20:09)
[2022-05-06] MEDS: NEOMY SULF/BACITRAC ZN/POLY OINT 30GM TUBE TP SCH ×3 (09:27→20:09)
[2022-05-06] MEDS: MEROPENEM 500 MG VIAL IVP SCH ×2 (11:46→23:22)
[2022-05-06] MEDS: LIDOCAINE HCL 2% JELLY 5 ML TP SCH (11:46)
[2022-05-06 12:00] VITALS: BP 131/82
[2022-05-06 16:00] VITALS: BP 151/73
[2022-05-06 20:00] VITALS: BP 124/68
[2022-05-07] VITALS (22 sets, daily range): BP systolic 95–167; BP diastolic 54–100
[2022-05-07] MEDS: LINEZOLID 600 MG/ISO-OSM 300 ML IV SCH ×2 (03:13→14:30)
[2022-05-07] MEDS: IPRATROPIUM/ALBUTEROL SULFATE 3 ML SOLUTION IH SCH ×3 (06:48→19:15)
[2022-05-07] MEDS: ACETYLCYSTEINE 20% 200MG/ML 4ML VIAL IH SCH ×3 (06:52→19:15)
[2022-05-07 08:35] LABS: HEMATOCRIT 32.3 % (42-54); MEAN CORPUSCULAR HEMOGLOBIN 32.2 pg (27.0-33.0); MEAN CORPUSCULAR HGB CONC 33.4 g/dL (32.0-36.0); MEAN CORPUSCULAR VOLUME 96.4 fL (79-99); NUCLEATED RED BLOOD CELLS 0.3 % (0.0-0.19); PLATELET COUNT (AUTO) 202 K/uL (130-400); RED BLOOD CELL COUNT(AUTO) 3.35 MIL/uL (4.50-6.20); RED CELL DISTRIBUTION WIDTH 14.7 % (11.0-15.5); WHITE BLOOD COUNT (AUTO) 17.1 K/uL (4.8-10.8)
[2022-05-07] MEDS: **HM** VIT D3 25MCG PO SCH (09:00)
[2022-05-07 09:01] LABS: POTASSIUM 3.8 mmol/L (3.5-5.1)
[2022-05-07 09:06] LABS: CREATININE 9.4 mg/dL (0.5-1.5)
[2022-05-07 09:10] LABS: LYMPHOCYTES % (MANUAL) 20 % (22-44); MONOCYTES % (MANUAL) 7 % (2-9); SEGMENTED NEUTROPHILS % 73 % (40-70)
[2022-05-07 09:11] LABS: MAN.DIFF COMMENT-IMPRESSION MANUAL DIFFERENTIAL; PLATELET MORPHOLOGY COMMENT ADEQUATE
[2022-05-07] MEDS: CALCIUM AC 667MG CAP PO SCH ×3 (09:28→17:47)
[2022-05-07] MEDS: SOLU-MEDROL 125MG VIAL IVP SCH ×2 (09:28→21:14)
[2022-05-07] MEDS: CITALOPRAM 20 MG TABLET PO SCH (09:28)
[2022-05-07] MEDS: PANTOPRAZOLE 40 MG TAB DR PO SCH (09:28)
[2022-05-07] MEDS: HYDROXYZINE 25 MG TABLET PO SCH ×2 (09:28→21:14)
[2022-05-07] MEDS: Vitamin B Complex/Vit C/Folic Acid PO SCH (09:28)
[2022-05-07] MEDS: NEOMY SULF/BACITRAC ZN/POLY OINT 30GM TUBE TP SCH ×3 (09:29→21:15)
[2022-05-07] MEDS: LIDOCAINE HCL 2% JELLY 5 ML TP SCH (12:30)
[2022-05-07] MEDS: MEROPENEM 500 MG VIAL IVP SCH ×2 (12:35→22:18)
[2022-05-07] MEDS: EPOETIN ALFA-EPBX (NON-ESRD) 10,000 UNIT/ML VIAL SQ SCH (18:09)
[2022-05-08] MEDS: IPRATROPIUM/ALBUTEROL SULFATE 3 ML SOLUTION IH SCH ×5 (00:43→23:35)
[2022-05-08] MEDS: ACETYLCYSTEINE 20% 200MG/ML 4ML VIAL IH SCH ×2 (00:43→06:50)
[2022-05-08] MEDS: LINEZOLID 600 MG/ISO-OSM 300 ML IV SCH ×2 (01:48→15:42)
[2022-05-08 04:00] VITALS: BP 134/71
[2022-05-08 05:10] LABS: HEMATOCRIT 32.7 % (42-54); MEAN CORPUSCULAR HEMOGLOBIN 32.7 pg (27.0-33.0); MEAN CORPUSCULAR HGB CONC 33.6 g/dL (32.0-36.0); MEAN CORPUSCULAR VOLUME 97.3 fL (79-99); NUCLEATED RED BLOOD CELLS 0.5 % (0.0-0.19); PLATELET COUNT (AUTO) 187 K/uL (130-400); RED BLOOD CELL COUNT(AUTO) 3.36 MIL/uL (4.50-6.20); RED CELL DISTRIBUTION WIDTH 14.9 % (11.0-15.5)
[2022-05-08 05:31] LABS: CREATININE 6.6 mg/dL (0.5-1.5); POTASSIUM 4.2 mmol/L (3.5-5.1)
[2022-05-08 06:49] LABS: LYMPHOCYTES % (MANUAL) 2 % (22-44); MAN.DIFF COMMENT-IMPRESSION MANUAL DIFFERENTIAL; MONOCYTES % (MANUAL) 7 % (2-9); PLATELET MORPHOLOGY COMMENT ADEQUATE; SEGMENTED NEUTROPHILS % 91 % (40-70)
[2022-05-08 07:20] VITALS: BP 120/69
[2022-05-08] MEDS: PANTOPRAZOLE 40 MG TAB DR PO SCH (08:04)
[2022-05-08] MEDS: SOLU-MEDROL 125MG VIAL IVP SCH (08:04)
[2022-05-08] MEDS: CALCIUM AC 667MG CAP PO SCH ×3 (08:04→17:06)
[2022-05-08] MEDS: Vitamin B Complex/Vit C/Folic Acid PO SCH (08:04)
[2022-05-08] MEDS: CITALOPRAM 20 MG TABLET PO SCH (08:04)
[2022-05-08] MEDS: HYDROXYZINE 25 MG TABLET PO SCH ×2 (08:04→21:01)
[2022-05-08] MEDS: NEOMY SULF/BACITRAC ZN/POLY OINT 30GM TUBE TP SCH ×3 (08:05→21:01)
[2022-05-08] MEDS: **HM** VIT D3 25MCG PO SCH (08:05)
[2022-05-08 11:15] VITALS: BP 128/70
[2022-05-08] MEDS: MEROPENEM 500 MG VIAL IVP SCH ×2 (12:21→22:36)
[2022-05-08] MEDS: LIDOCAINE HCL 2% JELLY 5 ML TP SCH (12:30)
[2022-05-08] MEDS: PREDNISONE 20 MG TABLET PO SCH (12:32)
[2022-05-08 15:05] VITALS: BP 126/85
[2022-05-08 20:47] VITALS: BP 128/72
[2022-05-09] VITALS (21 sets, daily range): BP systolic 94–135; BP diastolic 56–85
[2022-05-09] MEDS: LINEZOLID 600 MG/ISO-OSM 300 ML IV SCH ×2 (01:55→14:50)
[2022-05-09 04:13] LABS: HEMATOCRIT 32.1 % (42-54); MEAN CORPUSCULAR HEMOGLOBIN 32.8 pg (27.0-33.0); MEAN CORPUSCULAR HGB CONC 33.6 g/dL (32.0-36.0); MEAN CORPUSCULAR VOLUME 97.6 fL (79-99); NUCLEATED RED BLOOD CELLS 1.1 % (0.0-0.19); PLATELET COUNT (AUTO) 201 K/uL (130-400); RED BLOOD CELL COUNT(AUTO) 3.29 MIL/uL (4.50-6.20); RED CELL DISTRIBUTION WIDTH 14.7 % (11.0-15.5)
[2022-05-09 04:43] LABS: POTASSIUM 4.2 mmol/L (3.5-5.1)
[2022-05-09 04:55] LABS: LYMPHOCYTES % (MANUAL) 11 % (22-44); MAN.DIFF COMMENT-IMPRESSION MANUAL DIFFERENTIAL; MONOCYTES % (MANUAL) 7 % (2-9); SEGMENTED NEUTROPHILS % 82 % (40-70)
[2022-05-09] MEDS: IPRATROPIUM/ALBUTEROL SULFATE 3 ML SOLUTION IH SCH ×4 (07:11→23:00)
[2022-05-09] MEDS: **HM** VIT D3 25MCG PO SCH (09:00)
[2022-05-09] MEDS: LIDOCAINE HCL 2% JELLY 5 ML TP SCH (12:30)
[2022-05-09] MEDS: CITALOPRAM 20 MG TABLET PO SCH (13:31)
[2022-05-09] MEDS: CALCIUM AC 667MG CAP PO SCH ×3 (13:31→17:07)
[2022-05-09] MEDS: PANTOPRAZOLE 40 MG TAB DR PO SCH (13:31)
[2022-05-09] MEDS: MEROPENEM 500 MG VIAL IVP SCH ×2 (13:31→23:35)
[2022-05-09] MEDS: HYDROXYZINE 25 MG TABLET PO SCH ×2 (13:31→21:05)
[2022-05-09] MEDS: PREDNISONE 20 MG TABLET PO SCH (13:31)
[2022-05-09] MEDS: Vitamin B Complex/Vit C/Folic Acid PO SCH (13:31)
[2022-05-09] MEDS: NEOMY SULF/BACITRAC ZN/POLY OINT 30GM TUBE TP SCH ×2 (13:56→21:05)
[2022-05-09] MEDS: EPOETIN ALFA-EPBX (NON-ESRD) 10,000 UNIT/ML VIAL SQ SCH (14:50)
[2022-05-10 00:59] VITALS: BP 111/65
[2022-05-10] MEDS: LINEZOLID 600 MG/ISO-OSM 300 ML IV SCH (02:31)
[2022-05-10 04:38] VITALS: BP 103/62
[2022-05-10] MEDS: IPRATROPIUM/ALBUTEROL SULFATE 3 ML SOLUTION IH SCH ×2 (06:15→11:09)
[2022-05-10] MEDS: PREDNISONE 20 MG TABLET PO SCH (08:39)
[2022-05-10] MEDS: PANTOPRAZOLE 40 MG TAB DR PO SCH (08:39)
[2022-05-10] MEDS: HYDROXYZINE 25 MG TABLET PO SCH (08:39)
[2022-05-10] MEDS: CALCIUM AC 667MG CAP PO SCH ×2 (08:39→11:49)
[2022-05-10] MEDS: Vitamin B Complex/Vit C/Folic Acid PO SCH (08:40)
[2022-05-10] MEDS: CITALOPRAM 20 MG TABLET PO SCH (08:40)
[2022-05-10] MEDS: NEOMY SULF/BACITRAC ZN/POLY OINT 30GM TUBE TP SCH (08:43)
[2022-05-10 08:45] VITALS: BP 117/62
[2022-05-10] MEDS: **HM** VIT D3 25MCG PO SCH (09:00)
[2022-05-10 11:46] VITALS: BP 110/72
[2022-05-10] MEDS: MEROPENEM 500 MG VIAL IVP SCH (11:49)
[2022-05-10] MEDS: LIDOCAINE HCL 2% JELLY 5 ML TP SCH (12:30)
[2022-05-10] MEDS ORDERED: LIDOCAINE HCL 2% JELLY 5 ML TP SCH (18:30)
[2022-05-10] MEDS ORDERED: NEOMY SULF/BACITRAC ZN/POLY OINT 30GM TUBE TP SCH (21:00)
== END 2022-05-10 16:30 | disposition home or self-care (01) | DRG 133 ==
LOC: EDH 12:08 → DIRECT 12:09 → 3AH 15:58
PROVIDERS: ADMIT Internal Medicine; ATTEND Internal Medicine
PROC: 5A1D70Z Performance of Urinary Filtration, Intermittent, Less than 6 Hours Per Day (ICD-10-PCS; principal; 2022-05-02)
PROC: 5A1D70Z Performance of Urinary Filtration, Intermittent, Less than 6 Hours Per Day (ICD-10-PCS; 2022-05-05)
PROC: 5A1D70Z Performance of Urinary Filtration, Intermittent, Less than 6 Hours Per Day (ICD-10-PCS; 2022-05-07)
PROC: 5A1D70Z Performance of Urinary Filtration, Intermittent, Less than 6 Hours Per Day (ICD-10-PCS; 2022-05-09)
DX: J96.91 Respiratory failure, unspecified with hypoxia (principal); T86.12 Kidney transplant failure; I12.0 Hypertensive chronic kidney disease with stage 5 chronic kidney disease or end stage renal disease; D84.821 Immunodeficiency due to drugs; N18.6 End stage renal disease; J44.0 Chronic obstructive pulmonary disease with (acute) lower respiratory infection; E11.22 Type 2 diabetes mellitus with diabetic chronic kidney disease; J44.1 Chronic obstructive pulmonary disease with (acute) exacerbation; D64.9 Anemia, unspecified; E03.9 Hypothyroidism, unspecified; E11.51 Type 2 diabetes mellitus with diabetic peripheral angiopathy without gangrene; E78.5 Hyperlipidemia, unspecified; E87.70 Fluid overload, unspecified; T38.0X5A Adverse effect of glucocorticoids and synthetic analogues, initial encounter; Y83.8 Other surgical procedures as the cause of abnormal reaction of the patient, or of later complication, without mention of misadventure at the time of the procedure; Y83.0 Surgical operation with transplant of whole organ as the cause of abnormal reaction of the patient, or of later complication, without mention of misadventure at the time of the procedure; Z99.2 Dependence on renal dialysis; Z74.01 Bed confinement status; Z79.899 Other long term (current) drug therapy; Z83.3 Family history of diabetes mellitus
CPT/HCPCS: 36415; 71046; 71250; 80048; 80053; 80076; 82948; 83735; 84100; 85025; 85027; 86704; 86706; 87340; 90935; 94640; 94664; 94667; 94668; G0378; J2020; J2185; J2543; J2930; J7512; J7608; Q0163

== ENCOUNTER 2022-09-23 12:28 | Emergency (ER) | payer MEDICAID ==
[~2022-09-23] VITALS: Ht 147.3 cm; Wt 59.0 kg
[~2022-09-23 12:28] MED LIST changes: +CHOL100046 PO
[2022-09-23] MEDS ORDERED: TETANUS/DIPHTHERIA TOXOID [ADULT] 0.5 ML VIAL IM ONE (13:30)
[2022-09-23] MEDS ORDERED: HYDROCODONE/ACETAMINOPHEN 5/325 MG TAB PO ONE (13:30)
[2022-09-23] MEDS ORDERED: LIDOCAINE 2%-EPI 1:200,000 20 ML VIAL IJ SCH (13:30)
[2022-09-23] MEDS ORDERED: DIPH,PERTUSS(ACELL),TET VAC/PF 0.5 ML VIAL IM ONE (13:30)
[2022-09-23] MEDS ORDERED: LIDOCAINE HCL 1% 20 ML VIAL ONE (13:55)
[2022-09-23 14:22] VITALS: BP 112/66
[2022-09-23] MEDS ORDERED: BACITRACIN 1 EACH PACKET TP ONE (14:51)
[2022-09-23] MEDS ORDERED: AMOX/CLAV 875/125MG TAB PO ONE (15:00)
[2022-09-23] MEDS ORDERED: AMOX1TAB16 PO (15:01)
== END 2022-09-23 15:18 | disposition home or self-care (01) ==
LOC: EDH 12:28
DX: S81.012A Laceration without foreign body, left knee, initial encounter (principal); S80.211A Abrasion, right knee, initial encounter; N18.6 End stage renal disease; Z99.2 Dependence on renal dialysis; Z79.51 Long term (current) use of inhaled steroids; Z79.52 Long term (current) use of systemic steroids; Z79.899 Other long term (current) drug therapy; Z88.1 Allergy status to other antibiotic agents; Z88.8 Allergy status to other drugs, medicaments and biological substances; W18.39XA Other fall on same level, initial encounter; Y93.89 Activity, other specified; Y92.89 Other specified places as the place of occurrence of the external cause; Y99.8 Other external cause status
CPT/HCPCS: 12002; 73562; 90471; 90714; 90715; 96372; J3490

== ENCOUNTER 2022-10-03 18:38 | Emergency (ER) | payer MEDICAID ==
[~2022-10-03] VITALS: Ht 137.2 cm; Wt 58.5 kg
[~2022-10-03 18:38] MED LIST changes: +AMOX1TAB16 PO
[2022-10-03 20:22] VITALS: BP 136/86
[2022-10-03] MEDS ORDERED: CLIN-141 PO (21:04)
== END 2022-10-03 21:17 | disposition home or self-care (01) ==
LOC: EDH 18:38
DX: S81.012D Laceration without foreign body, left knee, subsequent encounter (principal); E78.00 Pure hypercholesterolemia, unspecified; I12.9 Hypertensive chronic kidney disease with stage 1 through stage 4 chronic kidney disease, or unspecified chronic kidney disease; N18.9 Chronic kidney disease, unspecified; Z88.1 Allergy status to other antibiotic agents; Z88.8 Allergy status to other drugs, medicaments and biological substances; Z99.2 Dependence on renal dialysis; Z79.899 Other long term (current) drug therapy; Z98.890 Other specified postprocedural states; X58.XXXD Exposure to other specified factors, subsequent encounter

== ENCOUNTER 2022-11-04 18:24 | Emergency (ER) | payer MEDICAID ==
[~2022-11-04] VITALS: Ht 137.2 cm; Wt 61.2 kg
[~2022-11-04 18:24] MED LIST changes: +CLIN-141 PO
[2022-11-04 19:59] LABS: BASOPHILS % (AUTO) 1.3 % (0.0-5.0); EOSINOPHILS % (AUTO) 3.2 % (0.0-8.0); HEMATOCRIT 37.7 % (42-54); LYMPHOCYTES % (AUTO) 30.3 % (21.0-51.0); MEAN CORPUSCULAR HEMOGLOBIN 31.9 pg (27.0-33.0); MEAN CORPUSCULAR HGB CONC 31.3 g/dL (32.0-36.0); MEAN CORPUSCULAR VOLUME 101.9 fL (79-99); MONOCYTES % (AUTO) 13.2 % (3.0-13.0); NEUTROPHILS % (AUTO) 51.7 % (40.0-77.0); PLATELET COUNT (AUTO) 148 K/uL (130-400); RED CELL DISTRIBUTION WIDTH 16.5 % (11.0-15.5); WHITE BLOOD COUNT (AUTO) 9.5 K/uL (4.8-10.8)
[2022-11-04] MEDS ORDERED: IOHEXOL-350 75 ML VIAL IV ONE (20:09)
[2022-11-04 20:27] LABS: CREATININE 7.2 mg/dL (0.5-1.5); POTASSIUM 3.6 mmol/L (3.5-5.1)
[2022-11-04 20:32] LABS: ALBUMIN 3.5 g/dL (3.5-5.0); TOTAL PROTEIN, SERUM 6.9 g/dL (6.0-8.3)
[2022-11-04 20:39] VITALS: BP 108/62
[2022-11-04] MEDS ORDERED: ACET-66 PO (21:24)
== END 2022-11-04 22:54 | disposition home or self-care (01) ==
LOC: EDH 18:24
DX: S30.1XXA Contusion of abdominal wall, initial encounter (principal); S80.11XA Contusion of right lower leg, initial encounter; I12.0 Hypertensive chronic kidney disease with stage 5 chronic kidney disease or end stage renal disease; E78.00 Pure hypercholesterolemia, unspecified; N18.6 End stage renal disease; J44.9 Chronic obstructive pulmonary disease, unspecified; Z79.899 Other long term (current) drug therapy; Z94.0 Kidney transplant status; Z95.1 Presence of aortocoronary bypass graft; Z99.2 Dependence on renal dialysis; Z88.1 Allergy status to other antibiotic agents; Z88.8 Allergy status to other drugs, medicaments and biological substances; W18.39XA Other fall on same level, initial encounter; Y93.89 Activity, other specified; Y92.89 Other specified places as the place of occurrence of the external cause; Y99.8 Other external cause status
CPT/HCPCS: 99285; 71270; 71045; 80053; 85025; 36415; 74178; 93005; Q9967